=== PATIENT | female | born 1990 | race Caucasian/White ===

== ENCOUNTER 2017-06-29 17:21 | Emergency (ER) | payer OTHER ==
--- NOTE | 2017-06-29 17:33 | Emergency Department Record ---
History of Present Illness - General Chief Complaint: Headache Migraine Stated Complaint: MIGRAINE HEADACHE Time Seen by Provider: 06/29/17 17:30 Source: Patient Mode of Arrival: Ambulatory Limitations: No limitations - History of Present Illness Initial Comments: The patient is here due to a 3 week hx of a migraine HURTADO. She states the pain is over the L occipital area and the onset was gradual. She describes the pain as throbbing and is associated with photophobia, nausea, and vomiting. The patient has been taking her home medicines for it with no relief. She has had a LONG hx of these exact same HURTADO's and does see a headache Specialist at [facility]. She states she has had a full workup including and MRI and even has had Occipital nerve blocks in the recent past for the pain. There is no hx of fever, abdominal pain , diarrhea or CP. The patient does have some numbness to her L arm but that is typical for when she gets her migraine headaches. MD Complaint: Headache Onset/Timin -: Week(s) Onset Description: Gradual Location: Left, Occipital Quality: Pulsatile, Throbbing Consistency: Constant Associated Symptoms: Nausea, Photophobia, Sensitivity to sound, Vomiting Treatments Prior to Arrival: Ibuprofen, Migraine medication, Prescription analgesic - Related Data Home Medications Medication Instructions Recorded Confirmed Last Taken Butalb/Acetaminophen/Caffeine 1 each PO ASDIR 06/29/17 06/29/17 Unknown [Fioricet] Cyclobenzaprine HCl [Flexeril] 10 mg PO ASDIR 06/29/17 06/29/17 Unknown Hydrocodone/Acetaminophen [Athol 1 tab PO ASDIR 06/29/17 06/29/17 06/29/17 5mg/325mg] Allergies Allergy/AdvReac Type Severity Reaction Status Date / Time amoxicillin [Amoxicillin] Allergy VOMITING Verified 06/29/17 17:34 ketorolac [From Toradol] Allergy ITCHING Verified 06/29/17 17:34 Travel Screening - Travel/Exposure Within Last 30 Days Have you traveled within the last 30 days?: No - Travel/Exposure Within Last Year Have you traveled outside the [place] in the last year?: No - Additonal Travel Details Have you been exposed to anyone with a communicable illness?: No Review of Systems Constitutional: Denies: Chills, Fever, Malaise Eyes: Denies: Eye discharge ENT: Denies: Congestion Respiratory: Denies: Cough, Dyspnea Past Medical History - SOCIAL HISTORY Smoking Status: Never smoker Alcohol Use: Occasional Drug Use: None - RESPIRATORY Hx Respiratory Disorders: No - CARDIOVASCULAR Hx Cardio Disorders: Yes Hx Cardiac Cath: Yes Hx Chest Pain: Yes Hx Hypotension: Yes Hx Irregular Heartbeat: Yes Hx Palpitations: Yes Hx Pacemaker/Defib: Yes Comment:: Sick sinus syndrome - NEURO Hx Neuro Disorders: Yes Hx Headaches: Yes - GI Hx GI Disorders: No - Hx Genitourinary Disorders: Yes Hx Kidney Stones: Yes Hx UTI: Yes - ENDOCRINE Hx Endocrine Disorders: Yes Comment:: hypoglycemic - MUSCULOSKELETAL Hx Musculoskeletal Disorders: No - PSYCH Hx Psych Problems: No - HEMATOLOGY/ONCOLOGY Hx Hematology/Oncology Disorders: No Family Medical History Any Significant Family History?: No Physical Exam - General General Appearance: Alert, Oriented x3, Cooperative, No acute distress - Head Head exam: Atraumatic, Normocephalic, Normal inspection - Eye Eye exam: Normal appearance, PERRL - ENT Throat exam: Normal inspection. negative: Tonsillar erythema, Tonsillar exudate - Neck Neck exam: Normal inspection, Full ROM. negative: Meningismus (The neck is very supple.), Tenderness - Respiratory Respiratory exam: Normal lung sounds bilaterally. negative: Respiratory distress - Cardiovascular Cardiovascular Exam: Regular rate, Normal rhythm, Normal heart sounds - GI/Abdominal GI/Abdominal exam: Soft, Normal bowel sounds. negative: Tenderness - Extremities Extremities exam: Normal inspection, Full ROM, Normal capillary refill. negative: Tenderness - Neurological Neurological exam: Alert, Normal gait, Oriented X3, Other (Neg Drift and Rhomberg exams.). negative: Abnormal gait, Motor sensory deficit Course Vital Signs 06/29/17 17:22 Temperature 97.9 F Pulse Rate 113 H Respiratory 16 Rate Blood Pressure 122/72 Pulse Ox 97 - Reevaluation(s) Reevaluation #1: The patient is doing better. Her pain is resolving and she is up walking with no difficulty. 06/29/17 18:51 Reevaluation #2: The patient is doing better but is still having some pain. On exam her pain is still very reproducible. We will treat with a 2nd dose of pain medicines and discharge when improved. She is keeping fluids down with no nausea. 06/29/17 18:57 06/29/17 19:01 Reevaluation #3: The patient is now 50-60% improved. She would like a little more pain medicine and will be ready for home. 06/29/17 19:11 Medical Decision Making - Lab Data Result diagrams: 06/29/17 18:10 06/29/17 18:10 Disposition Disposition: Discharge Clinical Impression: Chronic head pain Disposition: Home, Self-Care Condition: (1) Good Instructions: Chronic Pain (ED) Additional Instructions: Please continue your regular medicines for home. Please see your Headache Specialist later this month as planned. Return to the ER for any worsening or new pain, fever, or vomiting. Forms: Patient Portal Access Time of Disposition: 19:01 Quality - Quality Measures Quality Measures: N/A - Blood Pressure Screening View Details: Yes Does Patient Have Any of the Following: No Blood Pressure Classification: Normal BP Reading Systolic Measurement: 109 Diastolic Measurement: 62 Screening for High Blood Pressure: < Normal BP, F/U Not Required > [G8783]
[2017-06-29] MEDS ORDERED: ONDANSETRON HCL IV 4 MG/2 ML VIAL IVP ONE (17:36)
[2017-06-29] MEDS ORDERED: DIPHENHYDRAMINE HCL IV 50 MG/ML VIAL IVP ONE (17:36)
[2017-06-29] MEDS ORDERED: 0.9 % SODIUM CHLORIDE 1,000 ML BAG IV ONE (17:36)
[2017-06-29] MEDS ORDERED: METOCLOPRAMIDE HCL 10 MG/2 ML VIAL IVP ONE (17:36)
[2017-06-29 18:28] LABS: BASO % 0.5 % (0-6); EOS % 8.2 % (0-6); HEMATOCRIT 41.2 % (35.0-47.0); HEMOGLOBIN 13.9 gm/dl (11.6-16.0); LYMPH % 36.9 % (16-45); MEAN CELL VOLUME 81.9 fl (81-97); MEAN CORPUSCULAR HEMOGLOBIN 27.6 pg (27-33); MEAN CORPUSCULAR HGB CONC 33.7 g/dl (32-36); MEAN PLATELET VOLUME 10.4 fl (7.4-10.4); MONO % 5.4 % (0-9); PLATELET COUNT 320 K/uL (130-400); RED BLOOD COUNT 5.03 M/uL (3.80-5.40); RED CELL DISTRIBUTION WIDTH 12.6 % (11.5-14.5); WHITE BLOOD COUNT W/O DIFF 8.4 K/uL (4.2-12.2)
[2017-06-29] MEDS ORDERED: HYDROMORPHONE HCL 1MG/ML **SYRINGE IVP ONE ×3 (18:31→19:11)
[2017-06-29 18:42] LABS: ALB/GLOB RATIO 1.5 (1.1-1.8); ALBUMIN 4.9 gm/dL (3.5-5.0); ALKALINE PHOSPHATASE 66 U/L (38-126); ALT/SGPT 37 U/L (9-52); ANION GAP 10.5 (7-16); AST/SGOT 19 U/L (14-36); BILIRUBIN,TOTAL 0.45 mg/dL (0.2-1.3); BLOOD UREA NITROGEN 8 mg/dL (7-17); CARBON DIOXIDE 27.5 mmol/L (22-30); CREATININE 0.6 mg/dL (0.52-1.04); EST GLOMERULAR FILTRATION RATE > 60 ml/min; GLUCOSE,RANDOM 87 mg/dL (70-110); TOTAL PROTEIN 8.2 gm/dL (6.3-8.2)
== END 2017-06-29 20:05 | disposition home or self-care (01) ==
LOC: ER 17:21
DX: G89.29 Other chronic pain (principal); R51 Headache; R11.2 Nausea with vomiting, unspecified; H53.149 Visual discomfort, unspecified
CPT/HCPCS: 99284 ×2; 96374; 96375; 85025; 80053; J2405; J1170; J1200; J2765; J7030

== ENCOUNTER 2017-10-17 03:09 | Emergency (ER) | payer OTHER ==
[2017-10-17] MEDS ORDERED: 0.9 % SODIUM CHLORIDE 1,000 ML BAG IV ONE (03:26)
[2017-10-17] MEDS ORDERED: ONDANSETRON HCL IV 4 MG/2 ML VIAL IVP ONE (03:33)
[2017-10-17 03:34] LABS: BASO % 0.6 % (0-6); EOS % 8.8 % (0-6); GRAN % 42.8 % (47-80); LYMPH % 40.7 % (16-45); MEAN CELL VOLUME 82.8 fl (81-97); MEAN CORPUSCULAR HEMOGLOBIN 26.8 pg (27-33); MEAN CORPUSCULAR HGB CONC 32.4 g/dl (32-36); MEAN PLATELET VOLUME 10.1 fl (7.4-10.4); MONO % 7.1 % (0-9); PLATELET COUNT 351 K/uL (130-400); RED BLOOD COUNT 4.47 M/uL (3.80-5.40); RED CELL DISTRIBUTION WIDTH 12.3 % (11.5-14.5); WHITE BLOOD COUNT W/O DIFF 9.7 K/uL (4.2-12.2)
[2017-10-17] MEDS ORDERED: MORPHINE SULFATE 5 MG/ML PFS IVP ONE ×4 (03:34→05:50)
[2017-10-17] MEDS ORDERED: ACETAMINOPHEN 1,000 MG/100 ML BTL IVPB ONE (03:34)
--- NOTE | 2017-10-17 03:41 | Emergency Department Record ---
History of Present Illness - General Chief Complaint: Abdominal Pain Stated Complaint: ABDOMINAL PAIN Time Seen by Provider: 10/17/17 03:25 Source: Patient, Family Mode of Arrival: Wheelchair Limitations: No limitations - History of Present Illness Initial Comments: 27 yo female presents with low abdominal pain and fever prior to arrival. The patient was approximately 13 weeks by dates when on 10/06 she had a suction D for a miscarriage. Her surgery was at [facility]. Her OB is Dr Gomes. Her surgeon was Dr Omalley. She had bleeding after procedure that seemed more than expected. She was treated with 4 doses of Cytotec. She had some improvement in her bleeding. In the last day her pain has increased. She additionally has experienced a fever of 100.7 just prior to arrival with some fever occurring as early as 1pm on Sunday. She did treat the fever with Tylenol. 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 She has had associated nausea and vomiting with the symptoms just prior to arrival. She is Rh negative and was given Rhogam per the op note. Hgb on 10/10 was 11.2. She denies any other current symptoms to explain the fever. MD Complaint: Abdominal pain Onset/Timin -: Days(s) Location: Suprapubic Radiation: Suprapubic Migration to: Suprapubic Severity: Moderate Consistency: Getting worse Improves With: Nothing Worsens With: Nothing Associated Symptoms: Anorexia, Vomiting - Related Data LMP (females 10-50): other Home Medications Medication Instructions Recorded Confirmed Last Taken Aspirin 81 mg PO DAILY 10/17/17 10/17/17 Unknown Allergies Allergy/AdvReac Type Severity Reaction Status Date / Time amoxicillin [Amoxicillin] Allergy VOMITING Verified 10/17/17 03:23 ketorolac [From Toradol] Allergy ITCHING Verified 10/17/17 03:23 Travel Screening - Travel/Exposure Within Last 30 Days Have you traveled within the last 30 days?: No - Travel/Exposure Within Last Year Have you traveled outside the [place] in the last year?: No - Additonal Travel Details Have you been exposed to anyone with a communicable illness?: No Review of Systems Constitutional: Reports: Chills, Fever Eyes: Denies: Eye discharge, Eye pain ENT: Denies: Congestion, Dental pain, Throat pain Respiratory: Denies: Cough, Dyspnea, Hemoptysis, Stridor, Wheezes Cardiovascular: Denies: Chest pain, Palpitations, Syncope Endocrine: Denies: Fatigue Gastrointestinal: Reports: Abdominal pain, Nausea, Vomiting Genitourinary: Reports: Abnormal menses Skin: Denies: Bruising, Change in color, Rash Neurological: Denies: Numbness, Weakness Psychiatric: Denies: Anxiety Hematological/Lymphatic: Denies: Blood Clots, Easy bleeding, Easy bruising, Swollen glands Past Medical History - SOCIAL HISTORY Smoking Status: Never smoker Alcohol Use: None Drug Use: None - RESPIRATORY Hx Respiratory Disorders: No - CARDIOVASCULAR Hx Cardio Disorders: Yes Hx Cardiac Cath: Yes Hx Chest Pain: Yes Hx Hypotension: Yes Hx Irregular Heartbeat: Yes Hx Palpitations: Yes Hx Pacemaker/Defib: Yes Comment:: Sick sinus syndrome - NEURO Hx Neuro Disorders: Yes Hx Headaches: Yes (migraines 2/month) - GI Hx GI Disorders: No - Hx Genitourinary Disorders: Yes Hx Kidney Stones: Yes Hx UTI: Yes - ENDOCRINE Hx Endocrine Disorders: Yes Comment:: hypoglycemic - MUSCULOSKELETAL Hx Musculoskeletal Disorders: No - PSYCH Hx Psych Problems: No - HEMATOLOGY/ONCOLOGY Hx Hematology/Oncology Disorders: No Family Medical History Any Significant Family History?: No Physical Exam - General General Appearance: Alert, Oriented x3, Cooperative, No acute distress Limitations: No limitations - Head Head exam: Normal inspection - Eye Eye exam: Normal appearance. negative: Conjunctival injection - ENT ENT exam: Normal exam, Mucous membranes moist Ear exam: Normal external inspection Nasal Exam: Normal inspection Mouth exam: Normal external inspection - Neck Neck exam: Normal inspection, Full ROM. negative: Tenderness - Respiratory Respiratory exam: Normal lung sounds bilaterally. negative: Respiratory distress - Cardiovascular Cardiovascular Exam: Regular rate, Normal rhythm, Normal heart sounds - GI/Abdominal GI/Abdominal exam: Soft, Tenderness. negative: Distended, Guarding, Rebound, Rigid - Rectal Rectal exam: Deferred - exam: Deferred - Extremities Extremities exam: Normal inspection - Back Back exam: Reports: Normal inspection. Denies: CVA tenderness (R), CVA tenderness (L) - Neurological Neurological exam: Alert, Oriented X3 - Psychiatric Psychiatric exam: Normal affect, Normal mood - Skin Skin exam: Dry, Intact, Normal color, Warm Course Vital Signs 10/17/17 03:13 Temperature 98.3 F Pulse Rate 90 Respiratory 20 Rate Blood Pressure 91/64 Pulse Ox 98 - Reevaluation(s) Reevaluation #1: The patient reports 10 pain 10/17/17 03:44 The CBC was reviewed The Hgb 12.0 is and the WBC is 9.7 10/17/17 03:48 [facility] Op report and labs were reviewed 10/17/17 04:02 The CMP and UA were reviewed No acute changes. No sign of infection. I explained that I recommend and US and likely OB consultation for pain, fever, vomiting and chills. These services are not available at [facility] 10/17/17 04:04 I called [facility] to arrange ED to ED transfer. 10/17/17 04:[address] Rodriguez of [facility] ED He accepts the patient for transfer Medical Decision Making - Lab Data Result diagrams: 10/17/17 03:20 10/17/17 03:20 Disposition Disposition: Transfer Clinical Impression: Vaginal bleeding Abdominal pain Qualifiers: Abdominal location: unspecified location Qualified Code(s): R10.9 - Unspecified abdominal pain Disposition: Acute Care Hospital Transfer Transfer To: [facility] Reason For Transfer: Vaginal bleeding with fever after surgery Accepting Physician: Jennifer Time Discussed w/Accepting Physician: 04:04 Condition: (2) Stable Forms: Patient Portal Access Time of Disposition: 04:04 Quality - Quality Measures Quality Measures: N/A - Blood Pressure Screening Does Patient Have Any of the Following: No Blood Pressure Classification: Normal BP Reading Systolic Measurement: 91 Diastolic Measurement: 64 Screening for High Blood Pressure: < Normal BP, F/U Not Required > [G8783]
[2017-10-17 03:52] LABS: BILIRUBIN,TOTAL < 0.20 mg/dL (0.2-1.0); BLOOD UREA NITROGEN 8 mg/dL (6-20); CREATININE 0.5 mg/dL (0.5-0.9); EST GLOMERULAR FILTRATION RATE > 60 mL/min
[2017-10-17 03:53] LABS: TOTAL PROTEIN 7.7 g/dL (6.6-8.7)
[2017-10-17 03:54] LABS: URINE APPEARANCE CLEAR; URINE BILIRUBIN NEGATIVE (NEGATIVE); URINE BLOOD MODERATE (NEGATIVE); URINE COLOR YELLOW; URINE GLUCOSE (UA) NEGATIVE (NEGATIVE); URINE KETONE NEGATIVE (NEGATIVE); URINE LEUKOCYTE ESTERASE NEGATIVE (NEGATIVE); URINE NITRITE NEGATIVE (NEGATIVE); URINE PROTEIN NEGATIVE (NEGATIVE); URINE UROBILINOGEN 0.2 E.U./dL (0.20 - 1.00)
[2017-10-17 03:55] LABS: GLUCOSE,RANDOM 98 mg/dL (74-109)
[2017-10-17 03:57] LABS: ALT/SGPT 16 U/L (<33); AST/SGOT 32 U/L (10.0-35.0)
[2017-10-17 03:58] LABS: ALB/GLOB RATIO 1.2 (1.1-1.8); ALBUMIN 4.2 g/dL (4.0-5.0); ALKALINE PHOSPHATASE 62 U/L (35-104)
[2017-10-17 04:02] LABS: URINE BACTERIA NONE SEEN; URINE EPITHELIAL CELLS 0 - 2 (FEW); URINE WBC 0 - 2 (0-2/hpf)
[2017-10-17] MEDS ORDERED: KETOROLAC 30 MG/ML VIAL IVP ONE (04:12)
== END 2017-10-17 06:11 | disposition short-term general hospital (02) ==
LOC: ER 03:09
DX: O03.1 Delayed or excessive hemorrhage following incomplete spontaneous abortion (principal); R10.9 Unspecified abdominal pain; R50.81 Fever presenting with conditions classified elsewhere; R11.11 Vomiting without nausea
CPT/HCPCS: 99285 ×2; 96376; 96374; 96375; 96361; 85025; 80053; 81001; J2405; J2270; J7030

== ENCOUNTER 2017-11-17 13:14 | Emergency (ER) | payer OTHER ==
--- NOTE | 2017-11-17 13:25 | Emergency Department Record ---
History of Present Illness - General Chief Complaint: Chest Pain Stated Complaint: CHEST PAIN,SYNCOPY,NAUSEA,VOMITING Time Seen by Provider: 11/17/17 13:24 Source: Patient Mode of Arrival: Ambulatory - History of Present Illness Initial Comments: vomiting times 5 yesterday and three times through the night and dry heaves and diarrhea yesterday times 4 and three times today. lightheaded today and felt hot and dizzy and syncope times 5 ( three last night and two today). Dr. Del Valle is primary Dr. [facility] patient had a spontanious about 6 weeks ago and a D and C for retained products at [facility] 4 weeks ago and her last hcg level was 18 - Related Data Previous Rx's Medication Instructions Recorded Promethazine HCl [Phenergan] 25 mg PO Q6HR #10 tablet 11/17/17 Sucralfate [Carafate] 1 g PO QID #300 udc 11/17/17 Allergies Allergy/AdvReac Type Severity Reaction Status Date / Time amoxicillin [Amoxicillin] Allergy VOMITING Verified 11/17/17 13:32 ketorolac [From Toradol] Allergy ITCHING Verified 11/17/17 13:32 Review of Systems Reviewed: No additional complaints except as noted below Constitutional: Reports: As per HPI. Denies: Chills, Fever, Malaise, Night sweats, Weakness, Weight change Eyes: Reports: As per HPI. Denies: Eye discharge, Eye pain, Photophobia, Vision change ENT: Reports: As per HPI. Denies: Congestion, Dental pain, Ear pain, Epistaxis , Hearing loss, Throat pain Respiratory: Reports: As per HPI. Denies: Cough, Dyspnea, Hemoptysis, Stridor, Wheezes Cardiovascular: Reports: As per HPI, Chest pain. Denies: Arrhythmia, Dyspnea on exertion, Edema, Murmurs, Orthopnea, Palpitations, Paroxysmal nocturnal dyspnea, Rheumatic Fever, Syncope Endocrine: Reports: As per HPI. Denies: Fatigue, Heat or cold intolerance, Polydipsia, Polyuria Gastrointestinal: Reports: As per HPI, Abdominal pain, Diarrhea, Vomiting. Denies: Constipation, Hematemesis, Hematochezia, Melena, Nausea Genitourinary: Reports: As per HPI. Denies: Abnormal menses, Discharge, Dyspareunia, Dysuria, Frequency, Hematuria, Incontinence, Retention, Urgency Musculoskeletal: Reports: As per HPI. Denies: Arthralgia, Back pain, Gout, Joint swelling, Myalgia, Neck pain Skin: Reports: As per HPI. Denies: Bruising, Change in color, Change in hair/ nails, Lesions, Pruritus, Rash Neurological: Reports: As per HPI. Denies: Abnormal gait, Confusion, Headache, Numbness, Paresthesias, Seizure, Tingling, Tremors, Vertigo, Weakness Psychiatric: Reports: As per HPI. Denies: Anxiety, Auditory hallucinations, Depression, Homicidal thoughts, Suicidal thoughts, Visual hallucinations Hematological/Lymphatic: Reports: As per HPI. Denies: Anemia, Blood Clots, Easy bleeding, Easy bruising, Swollen glands Past Medical History - SOCIAL HISTORY Smoking Status: Never smoker Drug Use: None - RESPIRATORY Hx Respiratory Disorders: No - CARDIOVASCULAR Hx Cardio Disorders: Yes Hx Cardiac Cath: Yes Hx Chest Pain: Yes Hx Hypotension: Yes Hx Irregular Heartbeat: Yes Hx Palpitations: Yes Hx Pacemaker/Defib: Yes Comment:: Sick sinus syndrome - NEURO Hx Neuro Disorders: Yes Hx Headaches: Yes (migraines 2/month) - GI Hx GI Disorders: No - Hx Genitourinary Disorders: Yes Hx Kidney Stones: Yes Hx UTI: Yes - ENDOCRINE Hx Endocrine Disorders: Yes Comment:: hypoglycemic - MUSCULOSKELETAL Hx Musculoskeletal Disorders: No - PSYCH Hx Psych Problems: No - HEMATOLOGY/ONCOLOGY Hx Hematology/Oncology Disorders: No Physical Exam - General General Appearance: Alert, Oriented x3, Cooperative, No acute distress - Head Head exam: Normal inspection - Eye Eye exam: Normal appearance, PERRL Pupils: Normal accommodation - ENT ENT exam: Normal exam, Mucous membranes moist, Normal external ear exam, Normal orophraynx, TM's normal bilaterally Ear exam: Normal external inspection. negative: External canal tenderness Nasal Exam: Normal inspection. negative: Discharge, Sinus tenderness Mouth exam: Normal external inspection, Tongue normal Teeth exam: Normal inspection. negative: Dental caries Throat exam: Normal inspection. negative: Tonsillar erythema, Tonsillar exudate - Neck Neck exam: Normal inspection, Full ROM. negative: Tenderness - Respiratory Respiratory exam: Normal lung sounds bilaterally. negative: Respiratory distress - Cardiovascular Cardiovascular Exam: Regular rate, Normal rhythm, Normal heart sounds - GI/Abdominal GI/Abdominal exam: Soft, Normal bowel sounds. negative: Tenderness - Rectal Rectal exam: Deferred - exam: Deferred - Extremities Extremities exam: Normal inspection, Full ROM, Normal capillary refill. negative: Tenderness - Back Back exam: Reports: Normal inspection, Full ROM. Denies: Muscle spasm, Rash noted, Tenderness - Neurological Neurological exam: Alert, Normal gait, Oriented X3, Reflexes normal - Psychiatric Psychiatric exam: Normal affect, Normal mood - Skin Skin exam: Dry, Intact, Normal color, Warm Course pacemaker working nicely and when she say up she said she felt like she was going to pass out. - Reevaluation(s) Reevaluation #1: patient vomited the Gi cocktail and gave IV protonix 11/17/17 15:34 Reevaluation #2: dilaudid 1 mg IV for esophageal pain 11/17/17 15:35 Reevaluation #3: feeling better 11/17/17 17:07 Medical Decision Making - Lab Data Result diagrams: 11/17/17 13:30 11/17/17 13:30 Disposition Clinical Impression: Gastroenteritis, Viral syndrome Vomiting Qualifiers: Vomiting type: unspecified Vomiting Intractability: non-intractable Nausea presence: with nausea Qualified Code(s): R11.2 - Nausea with vomiting, unspecified Disposition: Home, Self-Care Condition: (1) Good Instructions: Gastroenteritis (ED) Additional Instructions: follow up with primary DrAlfonso in 5 days Prescriptions: Promethazine HCl [Phenergan] 25 mg PO Q6HR #10 tablet Sucralfate [Carafate] 1 g PO QID #300 udc Forms: Patient Portal Access Time of Disposition: 17:09 Quality - Quality Measures Quality Measures: N/A - Blood Pressure Screening Does Patient Have Any of the Following: No Blood Pressure Classification: Pre-Hypertensive BP Reading Systolic Measurement: 125 Diastolic Measurement: 76 Screening for High Blood Pressure: < Pre-Hypertensive BP, F/U Documented > [ G8950] Pre-Hypertensive Follow-up Interventions: Referral to alternative/primary care provider.
[2017-11-17 13:50] LABS: BASO % 0.2 % (0-6); EOS % 1.8 % (0-6); GRAN % 79.2 % (47-80); HEMATOCRIT 38.9 % (35.0-47.0); HEMOGLOBIN 12.7 gm/dl (11.6-16.0); MEAN CELL VOLUME 82.9 fl (81-97); MEAN CORPUSCULAR HEMOGLOBIN 27.1 pg (27-33); MEAN CORPUSCULAR HGB CONC 32.6 g/dl (32-36); MEAN PLATELET VOLUME 10.2 fl (7.4-10.4); MONO % 3.8 % (0-9); PLATELET COUNT 391 K/uL (130-400); RED BLOOD COUNT 4.69 M/uL (3.80-5.40); RED CELL DISTRIBUTION WIDTH 13.6 % (11.5-14.5); WHITE BLOOD COUNT W/O DIFF 15.2 K/uL (4.2-12.2)
[2017-11-17] MEDS ORDERED: MAGNESIUM HYDROXIDE/AL HYDROX 30 ML, LIDOCAINE VISC 2% 200 MG PO ONE ×2 (13:51)
[2017-11-17] MEDS ORDERED: PANTOPRAZOLE SODIUM 40 MG TABLET PO ONE (13:51)
[2017-11-17] MEDS ORDERED: 0.9 % SODIUM CHLORIDE 1000ML 1,000 ML IV SCH ×2 (14:00→14:30)
[2017-11-17 14:04] LABS: EST GLOMERULAR FILTRATION RATE > 60 mL/min
[2017-11-17] MEDS ORDERED: PANTOPRAZOLE SODIUM IV 40 MG VIAL IVP ONE (14:04)
[2017-11-17] MEDS ORDERED: ONDANSETRON HCL IV 4 MG/2 ML VIAL IVP ONE ×2 (14:04→16:33)
[2017-11-17 14:34] LABS: INFLUENZA A NEGATIVE (NEGATIVE); INFLUENZA B NEGATIVE (NEGATIVE)
[2017-11-17] MEDS ORDERED: KETOROLAC 30 MG/ML VIAL IVP ONE (15:15)
[2017-11-17] MEDS ORDERED: HYDROMORPHONE HCL 1 MG/ML SYRINGE IVP ONE (15:30)
[2017-11-17 15:35] LABS: BLOOD UREA NITROGEN 12 mg/dL (6-20); CREATININE 0.6 mg/dL (0.5-0.9)
[2017-11-17 15:38] LABS: GLUCOSE,RANDOM 103 mg/dL (74-109)
[2017-11-17 15:45] LABS: CKMB < 1.0 ng/mL (<3.77)
[2017-11-17] MEDS ORDERED: PROMETHAZINE HCL 25 MG in 0.9 % SODIUM CHLORIDE 100ML 100 ML IVPB ONE (16:38)
--- NOTE | 2017-11-17 17:17 | Emergency Department Record ---
History of Present Illness - General Chief Complaint: Chest Pain Stated Complaint: CHEST PAIN,SYNCOPY,NAUSEA,VOMITING Time Seen by Provider: 11/17/17 13:24 Source: Patient Mode of Arrival: Ambulatory - History of Present Illness Onset/Timin -: Days(s) Pain Location: Substernal, Left chest Anginal Symptoms: Nausea, Vomiting, Other Treatment Prior to Arrival Comment:: tyleonol ibuprofen - Related Data Previous Rx's Medication Instructions Recorded Hydrocodone/Acetaminophen [[place] 1 each PO Q6HR #14 tablet 11/17/17 5-325 Tablet] Promethazine HCl [Phenergan] 25 mg PO Q6HR #10 tablet 11/17/17 Sucralfate [Carafate] 1 g PO QID #300 udc 11/17/17 Allergies Allergy/AdvReac Type Severity Reaction Status Date / Time amoxicillin [Amoxicillin] Allergy VOMITING Verified 11/17/17 13:32 ketorolac [From Toradol] Allergy ITCHING Verified 11/17/17 13:32 Travel Screening - Travel/Exposure Within Last 30 Days Have you traveled within the last 30 days?: No - Travel/Exposure Within Last Year Have you traveled outside the [place] in the last year?: No - Additonal Travel Details Have you been exposed to anyone with a communicable illness?: Yes Exposure Details:: [facility] eye care - Travel Symptoms Symptom Screening: Fever (GT 100.4), Vomiting Review of Systems Constitutional: Reports: As per HPI. Denies: Chills, Fever, Malaise, Night sweats, Weakness, Weight change Eyes: Reports: As per HPI. Denies: Eye discharge, Eye pain, Photophobia, Vision change ENT: Reports: As per HPI. Denies: Congestion, Dental pain, Ear pain, Epistaxis , Hearing loss, Throat pain Respiratory: Reports: As per HPI. Denies: Cough, Dyspnea, Hemoptysis, Stridor, Wheezes Cardiovascular: Reports: As per HPI, Chest pain. Denies: Arrhythmia, Dyspnea on exertion, Edema, Murmurs, Orthopnea, Palpitations, Paroxysmal nocturnal dyspnea, Rheumatic Fever, Syncope Endocrine: Reports: As per HPI. Denies: Fatigue, Heat or cold intolerance, Polydipsia, Polyuria Gastrointestinal: Reports: As per HPI, Abdominal pain, Diarrhea, Vomiting. Denies: Constipation, Hematemesis, Hematochezia, Melena, Nausea Genitourinary: Reports: As per HPI. Denies: Abnormal menses, Discharge, Dyspareunia, Dysuria, Frequency, Hematuria, Incontinence, Retention, Urgency Musculoskeletal: Reports: As per HPI. Denies: Arthralgia, Back pain, Gout, Joint swelling, Myalgia, Neck pain Skin: Reports: As per HPI. Denies: Bruising, Change in color, Change in hair/ nails, Lesions, Pruritus, Rash Neurological: Reports: As per HPI. Denies: Abnormal gait, Confusion, Headache, Numbness, Paresthesias, Seizure, Tingling, Tremors, Vertigo, Weakness Psychiatric: Reports: As per HPI. Denies: Anxiety, Auditory hallucinations, Depression, Homicidal thoughts, Suicidal thoughts, Visual hallucinations Hematological/Lymphatic: Reports: As per HPI. Denies: Anemia, Blood Clots, Easy bleeding, Easy bruising, Swollen glands Past Medical History - SOCIAL HISTORY Smoking Status: Never smoker Drug Use: None - RESPIRATORY Hx Respiratory Disorders: No - CARDIOVASCULAR Hx Cardio Disorders: Yes Hx Cardiac Cath: Yes Hx Chest Pain: Yes Hx Hypotension: Yes Hx Irregular Heartbeat: Yes Hx Palpitations: Yes Hx Pacemaker/Defib: Yes Comment:: Sick sinus syndrome - NEURO Hx Neuro Disorders: Yes Hx Headaches: Yes (migraines 2/month) - GI Hx GI Disorders: No - Hx Genitourinary Disorders: Yes Hx Kidney Stones: Yes Hx UTI: Yes - ENDOCRINE Hx Endocrine Disorders: Yes Comment:: hypoglycemic - MUSCULOSKELETAL Hx Musculoskeletal Disorders: No - PSYCH Hx Psych Problems: No - HEMATOLOGY/ONCOLOGY Hx Hematology/Oncology Disorders: No Family Medical History Any Significant Family History?: No Course Vital Signs 11/17/17 11/17/17 11/17/17 13:16 15:01 15:30 Temperature 98.6 F Pulse Rate 91 H Pulse Rate [ 88 85 Pulse Ox Probe] Respiratory 20 20 16 Rate Blood Pressure 125/76 Blood Pressure 127/80 115/83 [Right Arm] Pulse Ox 97 99 98 11/17/17 11/17/17 16:00 16:30 Temperature Pulse Rate Pulse Rate [ 82 85 Pulse Ox Probe] Respiratory 20 Rate Blood Pressure Blood Pressure 119/81 120/81 [Right Arm] Pulse Ox Medical Decision Making - Lab Data Result diagrams: 11/17/17 13:30 11/17/17 13:30 Lab Results 11/17/17 11/17/17 11/17/17 Range/Units 13:30 13:30 13:30 WBC 15.2 H (4.2-12.2) K/uL RBC 4.69 (3.80-5.40) M/uL Hgb 12.7 (11.6-16.0) gm/dl Hct 38.9 (35.0-47.0) % MCV 82.9 (81-97) fl MCH 27.1 (27-33) pg MCHC 32.6 (32-36) g/dl RDW 13.6 (11.5-14.5) % Plt Count 391 (130-400) K/uL MPV 10.2 (7.4-10.4) fl Gran % 79.2 (47-80) % Lymphocytes % 15.0 L (16-45) % Monocytes % 3.8 (0-9) % Eosinophils % 1.8 (0-6) % Basophils % 0.2 (0-6) % Sodium 144 (136-145) mmol/L Potassium 3.9 (3.4-4.5) mmol/L Chloride 102 (98-107) mmol/L Carbon Dioxide 22.0 (22-29) mmol/L Anion Gap 20.0 H (7-16) BUN 12 (6-20) mg/dL Creatinine 0.6 (0.5-0.9) mg/dL Estimated GFR > 60 mL/min Random Glucose 103 (74-109) mg/dL Calcium 9.5 (8.6-10.0) mg/dL CK-MB (CK-2) < 1.0 (<3.77) ng/mL Troponin T < 0.010 (0-0.010) ng/mL Total Beta HCG 11.52 mIU/mL Influenza Type A Ag (NEGATIVE) Influenza Type B Ag (NEGATIVE) 11/17/17 Range/Units 14:15 WBC (4.2-12.2) K/uL RBC (3.80-5.40) M/uL Hgb (11.6-16.0) gm/dl Hct (35.0-47.0) % MCV (81-97) fl MCH (27-33) pg MCHC (32-36) g/dl RDW (11.5-14.5) % Plt Count (130-400) K/uL MPV (7.4-10.4) fl Gran % (47-80) % Lymphocytes % (16-45) % Monocytes % (0-9) % Eosinophils % (0-6) % Basophils % (0-6) % Sodium (136-145) mmol/L Potassium (3.4-4.5) mmol/L Chloride (98-107) mmol/L Carbon Dioxide (22-29) mmol/L Anion Gap (7-16) BUN (6-20) mg/dL Creatinine (0.5-0.9) mg/dL Estimated GFR mL/min Random Glucose (74-109) mg/dL Calcium (8.6-10.0) mg/dL CK-MB (CK-2) (<3.77) ng/mL Troponin T (0-0.010) ng/mL Total Beta HCG mIU/mL Influenza Type A Ag Negative (NEGATIVE) Influenza Type B Ag Negative (NEGATIVE) Disposition Clinical Impression: Gastroenteritis, Viral syndrome Vomiting Qualifiers: Vomiting type: unspecified Vomiting Intractability: non-intractable Nausea presence: with nausea Qualified Code(s): R11.2 - Nausea with vomiting, unspecified Disposition: Home, Self-Care Condition: (1) Good Instructions: Gastroenteritis (ED) Additional Instructions: follow up with primary DrAlfonso in 5 days Prescriptions: Hydrocodone/Acetaminophen [Kenvir 5-325 Tablet] 1 each PO Q6HR #14 tablet Promethazine HCl [Phenergan] 25 mg PO Q6HR #10 tablet Sucralfate [Carafate] 1 g PO QID #300 udc Forms: Patient Portal Access Time of Disposition: 17:16 Quality - Quality Measures Quality Measures: N/A - Blood Pressure Screening Does Patient Have Any of the Following: No Blood Pressure Classification: Pre-Hypertensive BP Reading Systolic Measurement: 125 Diastolic Measurement: 76 Screening for High Blood Pressure: < Pre-Hypertensive BP, F/U Documented > [ G8950] Pre-Hypertensive Follow-up Interventions: Referral to alternative/primary care provider.
== END 2017-11-17 17:26 | disposition home or self-care (01) ==
LOC: ER 13:14
DX: A08.4 Viral intestinal infection, unspecified (principal); R55 Syncope and collapse; R07.2 Precordial pain; R11.2 Nausea with vomiting, unspecified; I49.5 Sick sinus syndrome; Z95.0 Presence of cardiac pacemaker
CPT/HCPCS: 99284 ×2; 96374; 96375; 96361; 85025; 84702; 82553; 80048; 87400; 84484; 93005; 93010; J2405; J1170; C9113; J2550; J7030

== ENCOUNTER 2017-11-19 11:38 | Emergency (ER) | payer OTHER ==
--- NOTE | 2017-11-19 12:04 | Emergency Department Record ---
History of Present Illness - General Chief complaint: Vomiting Stated complaint: VOMITING Time Seen by Provider: 11/19/17 11:51 Source: Patient Mode of Arrival: Ambulatory Limitations: No limitations - History of Present Illness Initial comments: The patient is here due to multiple complaints. She has been ill for 3 days with nausea, vomiting, and diarrhea. Now she has been coughing and has had a runny nose, ST, HURTADO, and body aches for the last 18 hours. Her fiancee was just diagnosed with Flu A 2 days ago. She denies any neck pain, or AP but has had sharp stabbing CP intermittently for days which has been a chronic problem for her. The patient has a hx of sick sinus syndrome and does have a pacemaker. Additionally she has been lightheaded at times for days. She was in the ER 2 days ago for the same issues and did have 2 liters of IVF. The patient has a long hx of chronic migraine HURTADO's and states this pain is very similar to that pain which she experiences quite frequently. MD complaint: Diarrhea, Nausea, Vomiting Onset/Timin -: Days(s) Severity: Moderate Severity scale (1-10): 7 Quality: Aching Consistency: Constant Associated Symptoms: Cough, Headaches, Nausea/vomiting - Related Data Previous Rx's Medication Instructions Recorded Hydrocodone/Acetaminophen [[place] 1 each PO Q6HR #14 tablet 11/17/17 5-325 Tablet] Promethazine HCl [Phenergan] 25 mg PO Q6HR #10 tablet 11/17/17 Sucralfate [Carafate] 1 g PO QID #300 udc 11/17/17 Oseltamivir Phosphate [Tamiflu] 75 mg PO BID #9 capsule 11/19/17 Allergies Allergy/AdvReac Type Severity Reaction Status Date / Time amoxicillin [Amoxicillin] Allergy VOMITING Verified 11/19/17 11:51 ketorolac [From Toradol] Allergy ITCHING Verified 11/19/17 11:51 Travel Screening - Travel/Exposure Within Last 30 Days Have you traveled within the last 30 days?: No - Travel/Exposure Within Last Year Have you traveled outside the [place] in the last year?: No - Additonal Travel Details Have you been exposed to anyone with a communicable illness?: No - Travel Symptoms Symptom Screening: None Review of Systems Constitutional: Reports: Chills, Fever, Malaise Eyes: Denies: Eye discharge ENT: Reports: Congestion Respiratory: Reports: Cough. Denies: Dyspnea Cardiovascular: Reports: Chest pain (chronic.). Denies: Arrhythmia Endocrine: Reports: Fatigue Past Medical History - SOCIAL HISTORY Smoking Status: Never smoker Alcohol Use: None Drug Use: None - RESPIRATORY Hx Respiratory Disorders: No - CARDIOVASCULAR Hx Cardio Disorders: Yes Hx Cardiac Cath: Yes Hx Chest Pain: Yes Hx Hypotension: Yes Hx Irregular Heartbeat: Yes Hx Palpitations: Yes Hx Pacemaker/Defib: Yes Comment:: Sick sinus syndrome - NEURO Hx Neuro Disorders: Yes Hx Headaches: Yes (migraines 2/month) - GI Hx GI Disorders: No - Hx Genitourinary Disorders: Yes Hx Kidney Stones: Yes Hx UTI: Yes - ENDOCRINE Hx Endocrine Disorders: Yes Comment:: hypoglycemic - MUSCULOSKELETAL Hx Musculoskeletal Disorders: No - PSYCH Hx Psych Problems: No - HEMATOLOGY/ONCOLOGY Hx Hematology/Oncology Disorders: No Family Medical History Any Significant Family History?: Yes Physical Exam - General General Appearance: Alert, Oriented x3, Cooperative, No acute distress - Head Head exam: Atraumatic, Normocephalic, Normal inspection - Eye Eye exam: Normal appearance, PERRL, EOMI - ENT Throat exam: Tonsillar erythema. negative: Normal inspection, Tonsillomegaly, Tonsillar exudate - Neck Neck exam: Normal inspection, Full ROM. negative: Lymphadenopathy, Meningismus (The neck is very supple. There is a neg Kernig's and Brudsinski's reflexes.), Tenderness - Respiratory Respiratory exam: Normal lung sounds bilaterally. negative: Respiratory distress - Cardiovascular Cardiovascular Exam: Regular rate, Normal rhythm, Normal heart sounds - GI/Abdominal GI/Abdominal exam: Soft, Normal bowel sounds. negative: Tenderness - Extremities Extremities exam: Normal inspection, Full ROM, Normal capillary refill. negative: Tenderness - Neurological Neurological exam: Alert, Normal gait, Oriented X3. negative: Abnormal gait, Motor sensory deficit Course Vital Signs 11/19/17 11:44 Temperature 98.2 F Pulse Rate 95 H Respiratory 18 Rate Blood Pressure 123/84 Pulse Ox 97 - Reevaluation(s) Reevaluation #1: The patient is doing better but is still experiencing chest pains intermittently. She also is concerned as to why she seems to be passing out. I explained to her that our evaluation here at [facility] does not demonstrate any reason for the pain or syncope so I do believe the best course of action is to admit her to her Cardiology service for further monitoring and evaluation. The patient is refusing that plan. I explained to her that due to the possibility of a cardiac issue and the risks of NOT being admitted I have to insist that the patient leave the hospital AMA. The patient understands the risks of refusing and accepts the risks. She is in contact with her [facility] and will schedule an appointment soon. 11/19/17 14:01 Reevaluation #2: The patient is doing better at this time. Her Orthostatic vital signs were neg and she denies any states her pain is improved. She is ready for home. 11/19/17 14:34 Medical Decision Making - Data Complexity MDM Data: Labs Ordered and/or Reviewed, X-Ray Ordered and/or Reviewed, EKG Ordered and/or Reviewed - Lab Data Result diagrams: 11/19/17 11:20 11/19/17 11:20 - EKG Data -: EKG Interpreted by Me EKG: No Acute Changes, Unchanged From Previous - Radiology Data Radiology results: Report reviewed (CXR: Neg) Disposition Disposition: Discharge Clinical Impression: Viral syndrome Disposition: Against Medical Advice Condition: (2) Stable Instructions: Acute Nausea and Vomiting (ED) Additional Instructions: Please continue your home medicines and continue the Tamiflu. Please see your PCP later this week for recheck and also see your [facility]. Return to the ER for any worsening symptoms. Prescriptions: Oseltamivir Phosphate [Tamiflu] 75 mg PO BID #9 capsule Forms: Patient Portal Access Time of Disposition: 14:18 Quality - Quality Measures Quality Measures: N/A - Blood Pressure Screening View Details: Yes Does Patient Have Any of the Following: No Blood Pressure Classification: Pre-Hypertensive BP Reading Systolic Measurement: 123 Diastolic Measurement: 84 Screening for High Blood Pressure: < Pre-Hypertensive BP, F/U Documented > [ G8950] Pre-Hypertensive Follow-up Interventions: Referral to alternative/primary care provider.
[2017-11-19] MEDS ORDERED: PROMETHAZINE HCL 12.5 MG in 0.9 % SODIUM CHLORIDE 100ML 100 ML IVPB ONE (12:05)
[2017-11-19] MEDS ORDERED: ACETAMINOPHEN 1,000 MG/100 ML BTL IVPB ONE (12:05)
[2017-11-19] MEDS ORDERED: 0.9 % SODIUM CHLORIDE 1,000 ML BAG IV ONE ×2 (12:05→13:56)
[2017-11-19 12:38] LABS: BASO % 0.3 % (0-6); EOS % 3.9 % (0-6); GRAN % 74.3 % (47-80); HEMOGLOBIN 13.1 gm/dl (11.6-16.0); LYMPH % 17.3 % (16-45); MEAN CELL VOLUME 82.8 fl (81-97); MEAN CORPUSCULAR HEMOGLOBIN 27.1 pg (27-33); MEAN CORPUSCULAR HGB CONC 32.8 g/dl (32-36); MEAN PLATELET VOLUME 10.2 fl (7.4-10.4); MONO % 4.2 % (0-9); PLATELET COUNT 357 K/uL (130-400); RED BLOOD COUNT 4.83 M/uL (3.80-5.40); RED CELL DISTRIBUTION WIDTH 13.5 % (11.5-14.5); WHITE BLOOD COUNT W/O DIFF 11.2 K/uL (4.2-12.2)
[2017-11-19 12:47] LABS: BLOOD UREA NITROGEN 9 mg/dL (6-20); CREATININE 0.6 mg/dL (0.5-0.9); EST GLOMERULAR FILTRATION RATE > 60 mL/min
[2017-11-19 12:48] LABS: INR 1.05; PARTIAL THROMBOPLASTIN TIME 24.8 SECONDS (24.5-39.1); PROTHROMBIN TIME (PATIENT) 11.4 SECONDS (9.5-12.1)
[2017-11-19 12:50] LABS: GLUCOSE,RANDOM 83 mg/dL (74-109)
[2017-11-19] MEDS ORDERED: OSTELTAMIVIR 75 MG CAP PO ONE (12:51)
[2017-11-19 12:53] LABS: CREATINE PHOSPHOKINASE 37 U/L (26-192)
[2017-11-19 12:54] LABS: CKMB < 1.0 ng/mL (<3.77)
[2017-11-19 13:52] LABS: URINE APPEARANCE CLEAR; URINE BILIRUBIN NEGATIVE (NEGATIVE); URINE BLOOD NEGATIVE (NEGATIVE); URINE COLOR YELLOW; URINE GLUCOSE (UA) NEGATIVE (NEGATIVE); URINE KETONE 15 mg/dL (NEGATIVE); URINE LEUKOCYTE ESTERASE NEGATIVE (NEGATIVE); URINE NITRITE NEGATIVE (NEGATIVE); URINE PROTEIN NEGATIVE (NEGATIVE); URINE UROBILINOGEN 0.2 E.U./dL (0.20 - 1.00)
[2017-11-19] MEDS ORDERED: HYDROMORPHONE HCL 1 MG/ML SYRINGE IVP ONE (14:00)
--- NOTE | 2017-11-20 07:58 | RADIOLOGY REPORT ---
EXAM: CHEST, TWO VIEWS HISTORY: INFLUENZA SYMPTOMS FOR THREE DAYS. TECHNIQUE: Upright PA and lateral views of the chest were obtained. Comparison: Two view chest radiographic examination dated 10/31/17. FINDINGS: A dual lead transvenous cardiac stimulator is in place via the left subclavian approach with lead tips in the right atrium and right ventricle respectively. The heart is not enlarged and the pulmonary vasculature is nondilated. The lungs and pleural spaces are clear. Mild degenerative end plate changes are scattered throughout the visualized spine. IMPRESSION: DUAL LEAD TRANSVENOUS CARDIAC STIMULATOR REMAINS IN PLACE VIA THE LEFT SUBCLAVIAN APPROACH UNCHANGED. NO EVIDENCE OF AN ACUTE INTRATHORACIC PROCESS. JOB NUMBER: [id number] [facility]
== END 2017-11-19 14:43 | disposition left against medical advice (07) ==
LOC: ER 11:38
DX: B34.9 Viral infection, unspecified (principal); R07.9 Chest pain, unspecified; R11.2 Nausea with vomiting, unspecified; R19.7 Diarrhea, unspecified; R51 Headache; R05 Cough; J02.9 Acute pharyngitis, unspecified; I49.5 Sick sinus syndrome; I95.9 Hypotension, unspecified; Z95.0 Presence of cardiac pacemaker
CPT/HCPCS: 99284 ×2; 96374; 96375; 96361; 82550; 85025; 85730; 85610; 82553; 80048; 81003; 81025; 84484; 71046; 93005; 93010; J1170; J2550; J7030

== ENCOUNTER 2017-11-28 20:05 | Emergency (ER) | payer OTHER ==
[2017-11-28] MEDS: 0.9 % SODIUM CHLORIDE 1,000 ML BAG IV ONE (20:25)
[2017-11-28] MEDS ORDERED: KETOROLAC 30 MG/ML VIAL IVP ONE (21:02)
[2017-11-28] MEDS: ONDANSETRON HCL IV 4 MG/2 ML VIAL IV ONE (21:11)
[2017-11-28 21:13] LABS: BASO % 0.3 % (0-6); EOS % 3.1 % (0-6); HEMATOCRIT 36.4 % (35.0-47.0); HEMOGLOBIN 12.1 gm/dl (11.6-16.0); LYMPH % 32.8 % (16-45); MEAN CELL VOLUME 83.3 fl (81-97); MEAN CORPUSCULAR HEMOGLOBIN 27.7 pg (27-33); MEAN CORPUSCULAR HGB CONC 33.2 g/dl (32-36); MONO % 6.8 % (0-9); PLATELET COUNT 330 K/uL (130-400); RED BLOOD COUNT 4.37 M/uL (3.80-5.40); RED CELL DISTRIBUTION WIDTH 14.3 % (11.5-14.5); WHITE BLOOD COUNT W/O DIFF 10.8 K/uL (4.2-12.2)
[2017-11-28 21:14] LABS: URINE APPEARANCE CLEAR; URINE BILIRUBIN NEGATIVE (NEGATIVE); URINE BLOOD NEGATIVE (NEGATIVE); URINE COLOR YELLOW; URINE GLUCOSE (UA) NEGATIVE (NEGATIVE); URINE KETONE NEGATIVE (NEGATIVE); URINE LEUKOCYTE ESTERASE NEGATIVE (NEGATIVE); URINE NITRITE NEGATIVE (NEGATIVE); URINE PROTEIN NEGATIVE (NEGATIVE); URINE UROBILINOGEN 0.2 E.U./dL (0.20 - 1.00)
[2017-11-28 21:16] LABS: HCG,QUALITATIVE URINE NEGATIVE (NEGATIVE)
[2017-11-28 21:22] LABS: BLOOD UREA NITROGEN 8 mg/dL (6-20); CREATININE 0.4 mg/dL (0.5-0.9); EST GLOMERULAR FILTRATION RATE > 60 mL/min
[2017-11-28 21:25] LABS: GLUCOSE,RANDOM 104 mg/dL (74-109)
[2017-11-28] MEDS: PROMETHAZINE HCL 12.5 MG in 0.9 % SODIUM CHLORIDE 100ML 100 ML IVPB ONE (21:49)
[2017-11-28] MEDS: HYDROCODONE/APAP 5/325MG TABLET PO ONE (22:01)
--- NOTE | 2017-11-28 22:02 | Emergency Department Record ---
History of Present Illness - General Chief complaint: Flank Pain Stated complaint: FLANK PAIN,NAUSEA,BLOOD IN URINE Time Seen by Provider: 11/28/17 20:51 Source: Patient Mode of Arrival: Ambulatory Limitations: No limitations - History of Present Illness Initial comments: pt c/o r flank pain and feels like she has a kidney infection and a kidney stone MD Complaint: Other Onset/Timin -: Days(s) Radiation: Non-radiating Severity: Moderate Severity scale (1-10): 6 Quality: Sharp, Stabbing Consistency: Constant Improves with: None Patient : No Associated Symptoms: Abdominal pain, Dysuria, Fever/chills, Hematuria, Nausea/ vomiting - Related Data Sexually active: Yes Allergies Allergy/AdvReac Type Severity Reaction Status Date / Time amoxicillin [Amoxicillin] Allergy VOMITING Verified 11/19/17 11:51 ketorolac [From Toradol] Allergy ITCHING Verified 11/19/17 11:51 Travel Screening - Travel/Exposure Within Last 30 Days Have you traveled within the last 30 days?: No - Travel Symptoms Symptom Screening: Fever (Subjective) Review of Systems Reviewed: No additional complaints except as noted below Constitutional: Reports: As per HPI. Denies: Chills, Fever, Malaise, Night sweats, Weakness, Weight change Eyes: Reports: As per HPI. Denies: Eye discharge, Eye pain, Photophobia, Vision change ENT: Reports: As per HPI. Denies: Congestion, Dental pain, Ear pain, Epistaxis , Hearing loss, Throat pain Respiratory: Reports: As per HPI. Denies: Cough, Dyspnea, Hemoptysis, Stridor, Wheezes Cardiovascular: Reports: As per HPI. Denies: Arrhythmia, Chest pain, Dyspnea on exertion, Edema, Murmurs, Orthopnea, Palpitations, Paroxysmal nocturnal dyspnea, Rheumatic Fever, Syncope Endocrine: Reports: As per HPI. Denies: Fatigue, Heat or cold intolerance, Polydipsia, Polyuria Gastrointestinal: Reports: As per HPI, Abdominal pain, Nausea. Denies: Constipation, Diarrhea, Hematemesis, Hematochezia, Melena, Vomiting Genitourinary: Reports: As per HPI, Dysuria. Denies: Abnormal menses, Discharge , Dyspareunia, Frequency, Hematuria, Incontinence, Retention, Urgency Musculoskeletal: Reports: As per HPI. Denies: Arthralgia, Back pain, Gout, Joint swelling, Myalgia, Neck pain Skin: Reports: As per HPI. Denies: Bruising, Change in color, Change in hair/ nails, Lesions, Pruritus, Rash Neurological: Reports: As per HPI. Denies: Abnormal gait, Confusion, Headache, Numbness, Paresthesias, Seizure, Tingling, Tremors, Vertigo, Weakness Psychiatric: Reports: As per HPI. Denies: Anxiety, Auditory hallucinations, Depression, Homicidal thoughts, Suicidal thoughts, Visual hallucinations Hematological/Lymphatic: Reports: As per HPI. Denies: Anemia, Blood Clots, Easy bleeding, Easy bruising, Swollen glands Past Medical History - SOCIAL HISTORY Smoking Status: Never smoker - RESPIRATORY Hx Respiratory Disorders: No - CARDIOVASCULAR Hx Cardio Disorders: Yes Hx Cardiac Cath: Yes Hx Chest Pain: Yes Hx Hypotension: Yes Hx Irregular Heartbeat: Yes Hx Palpitations: Yes Hx Pacemaker/Defib: Yes Comment:: Sick sinus syndrome - NEURO Hx Neuro Disorders: Yes Hx Headaches: Yes (migraines 2/month) - GI Hx GI Disorders: No - Hx Genitourinary Disorders: Yes Hx Kidney Stones: Yes Hx UTI: Yes - ENDOCRINE Hx Endocrine Disorders: Yes Comment:: hypoglycemic - MUSCULOSKELETAL Hx Musculoskeletal Disorders: No - PSYCH Hx Psych Problems: No - HEMATOLOGY/ONCOLOGY Hx Hematology/Oncology Disorders: No Family Medical History Any Significant Family History?: No Physical Exam - General General Appearance: Alert, Oriented x3, Cooperative, Mild distress - Head Head exam: Normal inspection - Eye Eye exam: Normal appearance, PERRL, EOMI Pupils: Normal accommodation - ENT ENT exam: Normal exam, Mucous membranes moist, Normal external ear exam, Normal orophraynx, TM's normal bilaterally Ear exam: Normal external inspection. negative: External canal tenderness Nasal Exam: Normal inspection. negative: Discharge, Sinus tenderness Mouth exam: Normal external inspection, Tongue normal Teeth exam: Normal inspection. negative: Dental caries Throat exam: Normal inspection. negative: Tonsillar erythema, Tonsillar exudate - Neck Neck exam: Normal inspection, Full ROM. negative: Tenderness - Respiratory Respiratory exam: Normal lung sounds bilaterally. negative: Respiratory distress - Cardiovascular Cardiovascular Exam: Regular rate, Normal rhythm, Normal heart sounds - GI/Abdominal GI/Abdominal exam: Soft, Normal bowel sounds, Tenderness - Rectal Rectal exam: Deferred - exam: Deferred - Extremities Extremities exam: Normal inspection, Full ROM, Normal capillary refill. negative: Tenderness - Back Back exam: Reports: Normal inspection, Full ROM. Denies: Muscle spasm, Rash noted, Tenderness - Neurological Neurological exam: Alert, CN II-XII intact, Normal gait, Oriented X3 - Psychiatric Psychiatric exam: Normal affect, Normal mood - Skin Skin exam: Dry, Intact, Normal color, Warm Course Vital Signs 11/28/17 11/28/17 20:19 21:55 Temperature 97.8 F Pulse Rate [ 76 80 Pulse Ox Probe] Respiratory 20 22 Rate Blood Pressure 131/91 119/55 [Left Arm] Pulse Ox 97 100 Medical Decision Making - Lab Data Result diagrams: 11/28/17 20:25 11/28/17 20:25 Lab Results 11/28/17 11/28/17 11/28/17 Range/Units 20:25 20:25 21:15 WBC 10.8 (4.2-12.2) K/uL RBC 4.37 (3.80-5.40) M/uL Hgb 12.1 (11.6-16.0) gm/dl Hct 36.4 (35.0-47.0) % MCV 83.3 (81-97) fl MCH 27.7 (27-33) pg MCHC 33.2 (32-36) g/dl RDW 14.3 (11.5-14.5) % Plt Count 330 (130-400) K/uL MPV 11.0 H (7.4-10.4) fl Gran % 57.0 (47-80) % Lymphocytes % 32.8 (16-45) % Monocytes % 6.8 (0-9) % Eosinophils % 3.1 (0-6) % Basophils % 0.3 (0-6) % Sodium 138 (136-145) mmol/L Potassium 4.8 H (3.4-4.5) mmol/L Chloride 100 (98-107) mmol/L Carbon Dioxide 26.0 (22-29) mmol/L Anion Gap 12.0 (7-16) BUN 8 (6-20) mg/dL Creatinine 0.4 L (0.5-0.9) mg/dL Estimated GFR > 60 mL/min Random Glucose 104 (74-109) mg/dL Calcium 9.5 (8.6-10.0) mg/dL Urine Color Yellow Urine Appearance Clear Urine pH 6.0 (5.0-8.0) Ur Specific [place] 1.010 (1.002-1.030) Urine Protein Negative (NEGATIVE) Urine Glucose (UA) Negative (NEGATIVE) Urine Ketones Negative (NEGATIVE) Urine Blood Negative (NEGATIVE) Urine Nitrite Negative (NEGATIVE) Urine Bilirubin Negative (NEGATIVE) Urine Urobilinogen 0.2 (0.20 - 1.00) E.U./dL Ur Leukocyte Esterase Negative (NEGATIVE) Urine HCG, Qual Negative (NEGATIVE) Disposition Disposition: Discharge Clinical Impression: Right flank pain Disposition: Home, Self-Care Condition: (1) Good Instructions: Flank Pain (ED) Additional Instructions: follow up with family doctor. return sooner if worse. push fluids Quality - Quality Measures Quality Measures: N/A - Blood Pressure Screening Does Patient Have Any of the Following: No Blood Pressure Classification: Normal BP Reading Systolic Measurement: 119 Diastolic Measurement: 55 Screening for High Blood Pressure: < Normal BP, F/U Not Required > [G8783]
[2017-11-28] MEDS: LORAZEPAM 2 MG/ML VIAL IV ONE (22:19)
[2017-11-28 22:25] LABS: AMPHETAMINE SCREEN URINE NOT DETECTED; BARBITURATE SCREEN URINE NOT DETECTED; BENZODIAZEPINE SCREEN URINE DETECTED; COCAINE SCREEN URINE NOT DETECTED; METHADONE SCREEN URINE NOT DETECTED; METHAMPHETAMINE SCREEN NOT DETECTED; OPIATE SCREEN URINE NOT DETECTED; OXYCODONE SCREEN URINE NOT DETECTED; PHENCYCLIDINE SCREEN URINE NOT DETECTED; PROPOXYPHENE SCREEN URINE NOT DETECTED; THC SCREEN URINE NOT DETECTED; TRICYCLIC ANTIDEPRESSANT SCRN NOT DETECTED
[2017-11-28] MEDS: ONDANSETRON 4 MG ODT TABLET SL ONE (22:41)
--- NOTE | 2017-11-29 14:06 | CT SCAN REPORT ---
EXAM: CT OF THE ABDOMEN AND PELVIS HISTORY: KIDNEY PAIN. TECHNIQUE: CT of the abdomen and pelvis was performed without oral or IV contrast. This limits evaluation of bowel and solid visceral organs. Comparison: 09/01/14 CT. FINDINGS: Limited evaluation of the lung bases is unremarkable. The osseous structures are grossly intact. Limited evaluation of the liver, spleen, adrenal glands, pancreas, and kidneys is unremarkable. Negative for urinary tract calculus or hydronephrosis. No gross evidence for bowel obstruction. Abundant stool in the colon. Trace of free fluid in the pelvis which is likely physiologic. Probable bilateral ovarian follicles. No free air. The appendix is not well seen. No pericecal inflammation. IMPRESSION: 1. NEGATIVE FOR URINARY TRACT CALCULUS OR HYDRONEPHROSIS. ABUNDANT STOOL IN THE COLON. 2. TRACE OF FREE FLUID IN THE PELVIS WHICH IS LIKELY PHYSIOLOGIC. BILATERAL OVARIAN FOLLICLES ARE SUGGESTED. JOB NUMBER: [id number] [facility]
== END 2017-11-28 22:47 | disposition home or self-care (01) ==
LOC: ER 20:05
DX: R10.31 Right lower quadrant pain (principal); R30.0 Dysuria; R11.2 Nausea with vomiting, unspecified; R31.0 Gross hematuria; Z87.442 Personal history of urinary calculi
CPT/HCPCS: 74176; 80048; 80305; 81003; 81025; 85025; 96361; 96365; 96375; 99284; J2405; J2550; J7030

== ENCOUNTER 2018-08-12 18:16 | Emergency (ER) | payer BC ==
[2018-08-12] MEDS ORDERED: DIPHENHYDRAMINE HCL 50 MG/ML VIAL IVP ONE ×2 (18:32→19:48)
[2018-08-12] MEDS ORDERED: METOCLOPRAMIDE HCL 10 MG/2 ML VIAL IVP ONE (18:32)
[2018-08-12] MEDS ORDERED: ACETAMINOPHEN 1,000 MG/100 ML BTL IVPB ONE ×2 (18:32→20:09)
--- NOTE | 2018-08-12 18:38 | Emergency Department Record ---
History of Present Illness - General Chief Complaint: Headache Migraine Stated Complaint: MIGRAINE Time Seen by Provider: 08/12/18 18:27 Source: Patient Mode of Arrival: Ambulatory Limitations: No limitations - History of Present Illness Initial Comments: 28 yo female at 18 weeks gestation presents to ED for evaluation of headache symptoms for the past 5 days. Patient reports a history of migraine headaches with similar symptoms. Patient reports mild visual disturbance as well. Patient was told by her OB to come to the ED for evaluation. Patient denies history of pre-eclampsia, denies abdominal pain or urinary symptoms. Patient also denies neck stiffness symptoms. Patient does report a history of sick sinus syndrome s/p pacemaker placement. MD Complaint: Headache Onset/Timin -: Days(s) Onset Description: Gradual Severity: Severe Severity scale (1-10): 10 Quality: Aching Consistency: Constant Improves With: Nothing Worsens With: None Associated Symptoms: Nausea, Vomiting Treatments Prior to Arrival: Acetaminophen - Related Data Allergies Allergy/AdvReac Type Severity Reaction Status Date / Time ketorolac [From Toradol] Allergy ITCHING Unverified 07/22/18 15:03 amoxicillin [Amoxicillin] AdvReac VOMITING Unverified 08/12/18 18:31 Travel Screening - Travel/Exposure Within Last 30 Days Have you traveled within the last 30 days?: No Review of Systems Constitutional: Denies: Chills, Fever, Malaise, Night sweats Eyes: Reports: Vision change. Denies: Eye discharge, Eye pain ENT: Denies: Congestion, Ear pain Respiratory: Reports: Cough. Denies: Dyspnea Cardiovascular: Denies: Chest pain, Dyspnea on exertion Endocrine: Reports: Fatigue. Denies: Heat or cold intolerance Gastrointestinal: Reports: Nausea. Denies: Vomiting Genitourinary: Denies: Incontinence, Retention Musculoskeletal: Denies: Arthralgia, Back pain, Gout, Joint swelling Skin: Denies: Bruising, Change in color Neurological: Reports: Headache. Denies: Abnormal gait, Confusion, Numbness, Tingling, Tremors Psychiatric: Denies: Anxiety Hematological/Lymphatic: Denies: Anemia, Blood Clots Past Medical History - SOCIAL HISTORY Smoking Status: Never smoker Alcohol Use: None Drug Use: None - RESPIRATORY Hx Respiratory Disorders: No - CARDIOVASCULAR Hx Cardio Disorders: Yes Hx Cardiac Cath: Yes Hx Chest Pain: Yes Hx Hypotension: Yes Hx Irregular Heartbeat: Yes Hx Palpitations: Yes Hx Pacemaker/Defib: Yes Comment:: Sick sinus syndrome - NEURO Hx Neuro Disorders: Yes Hx Headaches: Yes (migraines 2/month) - GI Hx GI Disorders: No - Hx Genitourinary Disorders: Yes Hx Kidney Stones: Yes Hx UTI: Yes - ENDOCRINE Hx Endocrine Disorders: Yes Comment:: hypoglycemic - MUSCULOSKELETAL Hx Musculoskeletal Disorders: No - PSYCH Hx Psych Problems: No - HEMATOLOGY/ONCOLOGY Hx Hematology/Oncology Disorders: No Family Medical History Any Significant Family History?: No Physical Exam - General General Appearance: Alert, Oriented x3, Cooperative, Mild distress, Other ( appears uncomfortable due to her headache symptoms.) Limitations: No limitations - Head Head exam: Atraumatic, Normocephalic, Normal inspection Head exam detail: negative: Abrasion, Contusion, Anderson's sign, General tenderness, Hematoma, Laceration - Eye Eye exam: Normal appearance. negative: Conjunctival injection, Periorbital swelling, Periorbital tenderness, Scleral icterus - ENT Ear exam: negative: Auricular hematoma, Auricular trauma Nasal Exam: negative: Active bleeding, Discharge, Dried blood, Foreign body Mouth exam: negative: Drooling, Laceration, Tongue elevation - Neck Neck exam: Normal inspection. negative: Meningismus, Tenderness - Respiratory Respiratory exam: Normal lung sounds bilaterally. negative: Respiratory distress, Rhonchi, Stridor, Wheezes - Cardiovascular Cardiovascular Exam: Normal rhythm, Normal heart sounds, Tachycardia - GI/Abdominal GI/Abdominal exam: Soft, Other (Gravid uterus present). negative: Rebound, Rigid, Tenderness - Rectal Rectal exam: Deferred - exam: Deferred - Extremities Extremities exam: Normal inspection. negative: Calf tenderness, Pedal edema, Tenderness - Back Back exam: Denies: CVA tenderness (R), CVA tenderness (L) - Neurological Neurological exam: Alert, Normal gait, Oriented X3 - Psychiatric Psychiatric exam: Normal affect, Normal mood - Skin Skin exam: Normal color. negative: Abrasion Type of lesion: negative: abrasion Course Vital Signs 08/12/18 18:26 Temperature 98.2 F Pulse Rate 125 H Respiratory 18 Rate Blood Pressure 123/79 Pulse Ox 99 - Reevaluation(s) Reevaluation #1: 08/12/18 18:38 Patient was seen and examined. BP 123/79 currently. Will obtain hepatic enzymes and urinalysis to exclude proteinuria. Will obtain chest radiography as the patient reports recent cough symptoms, recently diagnosed with PNA 3 weeks ago. Will also administer migraine cocktail for her migraine headache symptoms and reassess. Reevaluation #2: 08/12/18 19:15 Laboratory studies were reviewed and are grossly unremarkable for an acute process. Reevaluation #3: 08/12/18 20:11 UA reviewed and appears negative. CXR: No acute process Patient was updated on all results, phenergan/Benadryl ordered for additional analgesia as the patient reports that her headache symptoms have not significantly improved. Reevaluation #4: 08/12/18 20:56 Patient reassessed, she is resting comfortably at this time and appears stable for discharge at this time. Medical Decision Making - Lab Data Result diagrams: 08/12/18 18:40 08/12/18 18:40 Disposition Disposition: Discharge Clinical Impression: Headache Qualifiers: Headache type: unspecified Headache chronicity pattern: acute headache Intractability: not intractable Qualified Code(s): R51 - Headache Disposition: Home, Self-Care Condition: (2) Stable Instructions: Acute Headache (ED) Additional Instructions: Return to ED if your symptoms worsen or if you have any concerns. Follow-up with your OB in 1-3 days as directed. Forms: Patient Portal Access Time of Disposition: 20:56 Quality - Quality Measures Quality Measures: N/A - Blood Pressure Screening Does Patient Have Any of the Following: No Blood Pressure Classification: Pre-Hypertensive BP Reading Systolic Measurement: 123 Diastolic Measurement: 79 Screening for High Blood Pressure: < Pre-Hypertensive BP, F/U Documented > [ G8950] Pre-Hypertensive Follow-up Interventions: Referral to alternative/primary care provider.
[2018-08-12] MEDS ORDERED: 0.9 % SODIUM CHLORIDE 1000ML 1,000 ML IV SCH (18:45)
[2018-08-12 18:51] LABS: BASO % 0.2 % (0-6); EOS % 4.3 % (0-6); GRAN % 66.7 % (47-80); HEMATOCRIT 39.7 % (35.0-47.0); HEMOGLOBIN 12.9 gm/dl (11.6-16.0); LYMPH % 22.5 % (16-45); MEAN CELL VOLUME 83.4 fl (81-97); MEAN CORPUSCULAR HEMOGLOBIN 27.1 pg (27-33); MEAN CORPUSCULAR HGB CONC 32.5 g/dl (32-36); MONO % 6.3 % (0-9); PLATELET COUNT 276 K/uL (130-400); RED BLOOD COUNT 4.76 M/uL (3.80-5.40); RED CELL DISTRIBUTION WIDTH 14.1 % (11.5-14.5); WHITE BLOOD COUNT W/O DIFF 11.1 K/uL (4.2-12.2)
[2018-08-12 19:06] LABS: BLOOD UREA NITROGEN 8 mg/dL (6-20); CREATININE 0.3 mg/dL (0.5-0.9); EST GLOMERULAR FILTRATION RATE > 60 mL/min
[2018-08-12 19:07] LABS: TOTAL PROTEIN 7.3 g/dL (6.6-8.7)
[2018-08-12 19:09] LABS: GLUCOSE,RANDOM 92 mg/dL (74-109)
[2018-08-12 19:11] LABS: ALT/SGPT 11 U/L (<33)
[2018-08-12 19:12] LABS: ALB/GLOB RATIO 1.3 (1.1-1.8); ALBUMIN 4.1 g/dL (4.0-5.0); ALKALINE PHOSPHATASE 50 U/L (35-104); AST/SGOT 17 U/L (10.0-35.0)
[2018-08-12] MEDS ORDERED: ONDANSETRON HCL IV 4 MG/2 ML VIAL IVP ONE (19:14)
[2018-08-12] MEDS ORDERED: PROMETHAZINE HCL 12.5 MG in 0.9 % SODIUM CHLORIDE 100ML 100 ML IVPB ONE (19:48)
[2018-08-12 19:54] LABS: URINE APPEARANCE CLEAR; URINE BILIRUBIN NEGATIVE (NEGATIVE); URINE BLOOD NEGATIVE (NEGATIVE); URINE COLOR YELLOW; URINE GLUCOSE (UA) NEGATIVE (NEGATIVE); URINE KETONE NEGATIVE (NEGATIVE); URINE LEUKOCYTE ESTERASE NEGATIVE (NEGATIVE); URINE NITRITE NEGATIVE (NEGATIVE); URINE PROTEIN NEGATIVE (NEGATIVE); URINE UROBILINOGEN 0.2 E.U./dL (0.20 - 1.00)
--- NOTE | 2018-08-15 11:04 | RADIOLOGY REPORT ---
EXAM: CHEST, TWO VIEWS HISTORY: PATIENT HAS COUGH AND FEVER. TECHNIQUE: Two views of the chest are provided along with the comparison study dated 11/19/17. FINDINGS: The cardiomediastinal silhouette is within normal limits for size and contour. The krzysztof appear unremarkable. The left anterior chest wall pacemaker is unchanged with respect to the prior examination. There is no radiographic evidence of a focal infiltrate, pleural effusion, or pneumothorax. IMPRESSION: STABLE RADIOGRAPHIC APPEARANCE OF THE CHEST WITH RESPECT TO THE PRIOR EXAMINATION. JOB NUMBER: [id number] [facility]
== END 2018-08-12 21:06 | disposition home or self-care (01) ==
LOC: ER 18:16
DX: R51 Headache (principal); R11.2 Nausea with vomiting, unspecified; H53.8 Other visual disturbances; I10 Essential (primary) hypertension; I49.5 Sick sinus syndrome; Z95.0 Presence of cardiac pacemaker; Z33.1 Pregnant state, incidental
CPT/HCPCS: 99284 ×2; 96376; 96374; 96375; 85025; 80053; 81003; 71046; J2405; J1200; J2550; J2765; J7030

== ENCOUNTER 2018-10-10 11:16 | Emergency (ER) | payer BC, OTHER ==
[2018-10-10] MEDS ORDERED: ACETAMINOPHEN 325 MG TAB PO ONE (11:47)
[2018-10-10 12:08] LABS: HEMATOCRIT 35.2 % (35.0-47.0); HEMOGLOBIN 11.7 gm/dl (11.6-16.0); MEAN CELL VOLUME 85.4 fl (81-97); MEAN CORPUSCULAR HEMOGLOBIN 28.4 pg (27-33); MEAN CORPUSCULAR HGB CONC 33.2 g/dl (32-36); MEAN PLATELET VOLUME 9.7 fl (7.4-10.4); PLATELET COUNT 254 K/uL (130-400); RED BLOOD COUNT 4.12 M/uL (3.80-5.40); RED CELL DISTRIBUTION WIDTH 13.8 % (11.5-14.5); WHITE BLOOD COUNT W/O DIFF 11.7 K/uL (4.2-12.2)
--- NOTE | 2018-10-10 12:13 | Emergency Department Record ---
History of Present Illness - General Chief Complaint: Dizziness Stated Complaint: EXPOSED TO GAS LEAK, Time Seen by Provider: 10/10/18 11:23 Source: Patient Mode of Arrival: Ambulatory Limitations: No limitations - History of Present Illness Initial Comments: The patient is here due to possibly being exposed to gas at work. 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 The building was evacuated because of the smell and the patient and rest of staff stood outside for an hour. Eventually everyone was sent home but since the patient is 26 weeks she was told to "get checked out". The patient did have complaints of a mild ST, HURTADO and dizziness. There was no cough, SOB, JOSE EDUARDO, or vomiting. Presently she is feeling better. The patient states the baby is moving fine and she denies any AP or cramping or bleeding. MD Complaint: Dizziness Onset/Timin -: Hour(s) Timing: Gradual onset Description: Lightheadedness, Nausea History of Same: No History of Trauma: No Severity: Moderate Improves With: Nothing Worsens With: Nothing - Corrine Coma Scale Eye Response: (4) Open spontaneously Motor Response: (6) Obeys commands Verbal Response: (5) Oriented Wrights Total: 15 - Related Data Allergies Allergy/AdvReac Type Severity Reaction Status Date / Time ketorolac [From Toradol] Allergy ITCHING Unverified 07/22/18 15:03 amoxicillin [Amoxicillin] AdvReac VOMITING Unverified 08/12/18 18:31 Travel Screening - Travel/Exposure Within Last 30 Days Have you traveled within the last 30 days?: No - Travel/Exposure Within Last Year Have you traveled outside the [place] in the last year?: No - Additonal Travel Details Have you been exposed to anyone with a communicable illness?: No - Travel Symptoms Symptom Screening: Headache Review of Systems Constitutional: Denies: Chills, Fever Eyes: Denies: Eye discharge ENT: Denies: Congestion Respiratory: Denies: Cough, Dyspnea Past Medical History - SOCIAL HISTORY Smoking Status: Never smoker Alcohol Use: None Drug Use: None - RESPIRATORY Hx Respiratory Disorders: No - CARDIOVASCULAR Hx Cardio Disorders: Yes Hx Cardiac Cath: Yes Hx Chest Pain: Yes Hx Hypotension: Yes Hx Irregular Heartbeat: Yes Hx Palpitations: Yes Hx Pacemaker/Defib: Yes Comment:: Sick sinus syndrome - NEURO Hx Neuro Disorders: Yes Hx Headaches: Yes (migraines 2/month) - GI Hx GI Disorders: No - Hx Genitourinary Disorders: Yes Hx Kidney Stones: Yes Hx UTI: Yes - ENDOCRINE Hx Endocrine Disorders: Yes Comment:: hypoglycemic - MUSCULOSKELETAL Hx Musculoskeletal Disorders: No - PSYCH Hx Psych Problems: No - HEMATOLOGY/ONCOLOGY Hx Hematology/Oncology Disorders: No Family Medical History Any Significant Family History?: No Physical Exam - General General Appearance: Alert, Oriented x3, Cooperative, No acute distress - Head Head exam: Atraumatic, Normocephalic, Normal inspection - Eye Eye exam: Normal appearance, PERRL, EOMI - ENT Throat exam: Normal inspection. negative: Tonsillar erythema, Tonsillar exudate - Neck Neck exam: Normal inspection, Full ROM. negative: Tenderness - Respiratory Respiratory exam: Normal lung sounds bilaterally. negative: Respiratory distress - Cardiovascular Cardiovascular Exam: Regular rate, Normal rhythm, Normal heart sounds - GI/Abdominal GI/Abdominal exam: Soft, Normal bowel sounds. negative: Tenderness - Extremities Extremities exam: Normal inspection, Full ROM, Normal capillary refill. negative: Tenderness - Neurological Neurological exam: Alert, Normal gait. negative: Abnormal gait, Motor sensory deficit Course Vital Signs 10/10/18 11:21 Temperature 97.8 F Pulse Rate 88 Respiratory 18 Rate Blood Pressure 118/73 Pulse Ox 98 - Reevaluation(s) Reevaluation #1: The patient is doing very well at this time. She states her HURTADO and dizziness are gone. She has been on oxygen by face mask for an hour and feels ready for home. 10/10/18 13:24 Medical Decision Making - Data Complexity MDM Data: Labs Ordered and/or Reviewed - Lab Data Result diagrams: 10/10/18 11:55 10/10/18 11:55 Lab Results 10/10/18 Range/Units 11:46 Carboxyhemoglobin 2.3 H (0-1.5) % Disposition Disposition: Discharge Clinical Impression: Chemical exposure Disposition: Home, Self-Care Condition: (2) Stable Instructions: Dizziness (ED) Additional Instructions: Please take Tylenol if needed and please see your OB doctor for any pain, bleeding or cramping. Forms: Patient Portal Access Time of Disposition: 13:26 Quality - Quality Measures Quality Measures: N/A - Blood Pressure Screening View Details: Yes Does Patient Have Any of the Following: No Blood Pressure Classification: Normal BP Reading Systolic Measurement: 118 Diastolic Measurement: 73 Screening for High Blood Pressure: < Normal BP, F/U Not Required > [G8712]
[2018-10-10 12:22] LABS: BLOOD UREA NITROGEN 7 mg/dL (6-20); CREATININE 0.4 mg/dL (0.5-0.9); EST GLOMERULAR FILTRATION RATE > 60 mL/min
[2018-10-10 12:23] LABS: TOTAL PROTEIN 6.6 g/dL (6.6-8.7)
[2018-10-10 12:25] LABS: GLUCOSE,RANDOM 92 mg/dL (74-109)
[2018-10-10 12:27] LABS: ALT/SGPT 14 U/L (<33)
[2018-10-10 12:28] LABS: ALB/GLOB RATIO 1.2 (1.1-1.8); ALBUMIN 3.6 g/dL (4.0-5.0); ALKALINE PHOSPHATASE 56 U/L (35-104); AST/SGOT 16 U/L (10.0-35.0)
[2018-10-10] MEDS ORDERED: POTASSIUM CHLORIDE 20 MEQ TABLET PO ONE (12:53)
== END 2018-10-10 13:32 | disposition home or self-care (01) ==
LOC: ER 11:16
DX: O9A.212 Injury, poisoning and certain other consequences of external causes complicating pregnancy, second trimester (principal); T58.91XA Toxic effect of carbon monoxide from unspecified source, accidental (unintentional), initial encounter; R51 Headache; R42 Dizziness and giddiness; J02.9 Acute pharyngitis, unspecified; R07.89 Other chest pain; Y92.59 Other trade areas as the place of occurrence of the external cause; Y99.0 Civilian activity done for income or pay; Z3A.26 26 weeks gestation of pregnancy
CPT/HCPCS: 80053; 82375; 85027; 99283; 99284

== ENCOUNTER 2019-02-24 15:04 | Emergency (ER) | payer BC ==
[2019-02-24] MEDS ORDERED: 0.9 % SODIUM CHLORIDE 1,000 ML BAG IV ONE (15:49)
[2019-02-24] MEDS ORDERED: ONDANSETRON HCL IV 4 MG/2 ML VIAL IV ONE (15:49)
[2019-02-24] MEDS ORDERED: HYDROMORPHONE HCL 2 MG/ML VIAL IVP ONE ×2 (15:51→17:29)
[2019-02-24 16:09] LABS: URINE APPEARANCE CLEAR; URINE BILIRUBIN NEGATIVE (NEGATIVE); URINE BLOOD NEGATIVE (NEGATIVE); URINE COLOR YELLOW; URINE GLUCOSE (UA) NEGATIVE (NEGATIVE); URINE KETONE NEGATIVE (NEGATIVE); URINE LEUKOCYTE ESTERASE NEGATIVE (NEGATIVE); URINE NITRITE NEGATIVE (NEGATIVE); URINE PROTEIN NEGATIVE (NEGATIVE); URINE UROBILINOGEN 0.2 E.U./dL (0.20 - 1.00)
[2019-02-24 16:11] LABS: HCG,QUALITATIVE URINE NEGATIVE (NEGATIVE)
[2019-02-24 16:42] LABS: HEMATOCRIT 41.9 % (35.0-47.0); HEMOGLOBIN 13.5 gm/dl (11.6-16.0); RED BLOOD COUNT 5.03 M/uL (3.80-5.40); WHITE BLOOD COUNT W/O DIFF 8.3 K/uL (4.2-12.2)
[2019-02-24 16:43] LABS: BASO % 0.5 % (0-6); GRAN % 49.6 % (47-80); LYMPH % 37.8 % (16-45); MEAN CELL VOLUME 83.3 fl (81-97); MEAN CORPUSCULAR HEMOGLOBIN 26.8 pg (27-33); MEAN CORPUSCULAR HGB CONC 32.2 g/dl (32-36); MONO % 7.1 % (0-9); PLATELET COUNT 295 K/uL (130-400); RED CELL DISTRIBUTION WIDTH 12.9 % (11.5-14.5)
[2019-02-24 16:55] LABS: BLOOD UREA NITROGEN 9 mg/dL (6-20); CREATININE 0.5 mg/dL (0.5-0.9); EST GLOMERULAR FILTRATION RATE > 60 mL/min
[2019-02-24 16:58] LABS: GLUCOSE,RANDOM 95 mg/dL (74-109)
[2019-02-24] MEDS ORDERED: ONDANSETRON HCL IV 4 MG/2 ML VIAL IVP ONE (17:30)
--- NOTE | 2019-02-24 18:36 | Emergency Department Record ---
History of Present Illness - General Chief complaint: Flank Pain Stated complaint: FLANK PAIN,NAUSEA, Time Seen by Provider: 02/24/19 15:45 Source: Patient Mode of Arrival: Ambulatory Limitations: No limitations - History of Present Illness Initial comments: pt is c/o r flank pain and n/v, uti symptoms. she is sure that she has a kidney infection and thinks she might have a kidney stone. she states she has had both before. she also states she has had a fever MD Complaint: Dysuria -: Hour(s) Radiation: R flank Severity scale (1-10): 10 Quality: Sharp, Stabbing Consistency: Constant Improves with: None Worsens with: None Patient : No Associated Symptoms: Fever/chills, Nausea/vomiting - Related Data Previous Rx's Medication Instructions Recorded Hydrocodone/Acetaminophen [[place] 1 each PO BID #5 tablet 02/24/19 5-325 Tablet] Promethazine HCl [Phenergan] 12.5 mg PO BID #5 tablet 02/24/19 Allergies Allergy/AdvReac Type Severity Reaction Status Date / Time ketorolac [From Toradol] Allergy ITCHING Verified 02/24/19 15:31 amoxicillin [Amoxicillin] AdvReac VOMITING Verified 02/24/19 15:31 Travel Screening - Travel/Exposure Within Last 30 Days Have you traveled within the last 30 days?: No - Travel Symptoms Symptom Screening: None Review of Systems Reviewed: No additional complaints except as noted below Constitutional: Reports: As per HPI. Denies: Chills, Fever, Malaise, Night sweats, Weakness, Weight change Eyes: Reports: As per HPI. Denies: Eye discharge, Eye pain, Photophobia, Vision change ENT: Reports: As per HPI. Denies: Congestion, Dental pain, Ear pain, Epistaxis , Hearing loss, Throat pain Respiratory: Reports: As per HPI. Denies: Cough, Dyspnea, Hemoptysis, Stridor, Wheezes Cardiovascular: Reports: As per HPI. Denies: Arrhythmia, Chest pain, Dyspnea on exertion, Edema, Murmurs, Orthopnea, Palpitations, Paroxysmal nocturnal dyspnea, Rheumatic Fever, Syncope Endocrine: Reports: As per HPI. Denies: Fatigue, Heat or cold intolerance, Polydipsia, Polyuria Gastrointestinal: Reports: As per HPI. Denies: Abdominal pain, Constipation, Diarrhea, Hematemesis, Hematochezia, Melena, Nausea, Vomiting Genitourinary: Reports: As per HPI. Denies: Abnormal menses, Discharge, Dyspareunia, Dysuria, Frequency, Hematuria, Incontinence, Retention, Urgency Musculoskeletal: Reports: As per HPI. Denies: Arthralgia, Back pain, Gout, Joint swelling, Myalgia, Neck pain Skin: Reports: As per HPI. Denies: Bruising, Change in color, Change in hair/ nails, Lesions, Pruritus, Rash Neurological: Reports: As per HPI. Denies: Abnormal gait, Confusion, Headache, Numbness, Paresthesias, Seizure, Tingling, Tremors, Vertigo, Weakness Psychiatric: Reports: As per HPI. Denies: Anxiety, Auditory hallucinations, Depression, Homicidal thoughts, Suicidal thoughts, Visual hallucinations Hematological/Lymphatic: Reports: As per HPI. Denies: Anemia, Blood Clots, Easy bleeding, Easy bruising, Swollen glands Past Medical History - SOCIAL HISTORY Smoking Status: Never smoker Alcohol Use: None Drug Use: None - RESPIRATORY Hx Respiratory Disorders: No - CARDIOVASCULAR Hx Cardio Disorders: Yes Hx Cardiac Cath: Yes Hx Chest Pain: Yes Hx Hypotension: Yes Hx Irregular Heartbeat: Yes Hx Palpitations: Yes Hx Pacemaker/Defib: Yes Comment:: Sick sinus syndrome - NEURO Hx Neuro Disorders: Yes Hx Headaches: Yes (migraines 2/month) - GI Hx GI Disorders: No - Hx Genitourinary Disorders: Yes Hx Kidney Stones: Yes Hx UTI: Yes - ENDOCRINE Hx Endocrine Disorders: Yes Comment:: hypoglycemic - MUSCULOSKELETAL Hx Musculoskeletal Disorders: No - PSYCH Hx Psych Problems: No - HEMATOLOGY/ONCOLOGY Hx Hematology/Oncology Disorders: No Family Medical History Any Significant Family History?: Yes Hx Cancer: Brother/Sister Hx Kidney Disease: Brother/Sister Physical Exam - General General Appearance: Alert, Oriented x3, Cooperative, No acute distress - Head Head exam: Normal inspection - Eye Eye exam: Normal appearance, PERRL, EOMI Pupils: Normal accommodation - ENT ENT exam: Normal exam, Mucous membranes moist, Normal external ear exam, Normal orophraynx Ear exam: Normal external inspection. negative: External canal tenderness Nasal Exam: Normal inspection. negative: Discharge, Sinus tenderness Mouth exam: Normal external inspection, Tongue normal Teeth exam: Normal inspection. negative: Dental caries Throat exam: Normal inspection. negative: Tonsillar erythema, Tonsillar exudate - Neck Neck exam: Normal inspection, Full ROM. negative: Tenderness - Respiratory Respiratory exam: Normal lung sounds bilaterally. negative: Respiratory distress - Cardiovascular Cardiovascular Exam: Regular rate, Normal rhythm, Normal heart sounds - GI/Abdominal GI/Abdominal exam: Soft, Normal bowel sounds. negative: Tenderness - Rectal Rectal exam: Deferred - exam: Deferred - Extremities Extremities exam: Normal inspection, Full ROM, Normal capillary refill. negative: Tenderness - Back Back exam: Reports: Normal inspection, Full ROM. Denies: Muscle spasm, Rash noted, Tenderness - Neurological Neurological exam: Alert, CN II-XII intact, Normal gait, Oriented X3 - Psychiatric Psychiatric exam: Normal affect, Normal mood - Skin Skin exam: Dry, Intact, Normal color, Warm Course Vital Signs 02/24/19 02/24/19 15:26 17:57 Temperature 98.1 F Pulse Rate 86 Pulse Rate [ 83 Pulse Ox Probe] Respiratory 20 Rate Blood Pressure 104/70 Blood Pressure 104/75 [Right Arm] Pulse Ox 98 98 - Reevaluation(s) Reevaluation #1: 02/24/19 18:[address] and urine was neg as it was in 11/28/17. pt states she went to [facility] after that and was admitted for pylonephritis. Medical Decision Making - Lab Data Result diagrams: 02/24/19 16:25 02/24/19 16:25 Lab Results 02/24/19 02/24/19 02/24/19 Range/Units 16:04 16:25 16:25 WBC 8.3 (4.2-12.2) K/uL RBC 5.03 (3.80-5.40) M/uL Hgb 13.5 (11.6-16.0) gm/dl Hct 41.9 (35.0-47.0) % MCV 83.3 (81-97) fl MCH 26.8 L (27-33) pg MCHC 32.2 (32-36) g/dl RDW 12.9 (11.5-14.5) % Plt Count 295 (130-400) K/uL MPV 10.0 (7.4-10.4) fl Gran % 49.6 (47-80) % Lymphocytes % 37.8 (16-45) % Monocytes % 7.1 (0-9) % Eosinophils % 5.0 (0-6) % Basophils % 0.5 (0-6) % Sodium 142 (136-145) mmol/L Potassium 3.7 (3.4-4.5) mmol/L Chloride 107 (98-107) mmol/L Carbon Dioxide 23.0 (22-29) mmol/L Anion Gap 12.0 (7-16) BUN 9 (6-20) mg/dL Creatinine 0.5 (0.5-0.9) mg/dL Estimated GFR > 60 mL/min Random Glucose 95 (74-109) mg/dL Calcium 9.2 (8.6-10.0) mg/dL Urine Color Yellow Urine Appearance Clear Urine pH 6.0 (5.0-8.0) Ur Specific [place] <= 1.005 (1.002-1.030) Urine Protein Negative (NEGATIVE) Urine Glucose (UA) Negative (NEGATIVE) Urine Ketones Negative (NEGATIVE) Urine Blood Negative (NEGATIVE) Urine Nitrite Negative (NEGATIVE) Urine Bilirubin Negative (NEGATIVE) Urine Urobilinogen 0.2 (0.20 - 1.00) E.U./dL Ur Leukocyte Esterase Negative (NEGATIVE) Urine HCG, Qual Negative (NEGATIVE) Disposition Disposition: Discharge Clinical Impression: Flank pain, Lung nodule < 6cm on CT Disposition: Home, Self-Care Condition: (1) Good Instructions: Flank Pain (ED), Pulmonary Nodules (ED) Additional Instructions: follow up with family doctor. return sooner if worse. push fluids. follow up with urologist and GI doctor. have follow up ct of lungs in 6 months . Prescriptions: Hydrocodone/Acetaminophen [[place] 5-325 Tablet] 1 each PO BID #5 tablet Promethazine HCl [Phenergan] 12.5 mg PO BID #5 tablet Forms: Patient Portal Access Quality - Quality Measures Quality Measures: N/A - Blood Pressure Screening Does Patient Have Any of the Following: No Blood Pressure Classification: Normal BP Reading Systolic Measurement: 104 Diastolic Measurement: 70 Screening for High Blood Pressure: < Normal BP, F/U Not Required > [G8783]
== END 2019-02-24 19:14 | disposition home or self-care (01) ==
LOC: ER 15:04
DX: R10.31 Right lower quadrant pain (principal); R91.1 Solitary pulmonary nodule; R11.2 Nausea with vomiting, unspecified; R30.0 Dysuria
CPT/HCPCS: 99284 ×2; 96376; 96374; 96375; 96361; 85025; 80048; 81003; 81025; 74176; J2405; J1170; J7030

== ENCOUNTER 2019-12-17 15:39 | Emergency (ER) | payer BC, OTHER ==
--- NOTE | 2019-12-17 16:26 | Emergency Department Record ---
History of Present Illness - General Chief Complaint: Dizziness Stated Complaint: dizziness,nausea Time Seen by Provider: 12/17/19 16:15 Source: Patient Mode of Arrival: Wheelchair - History of Present Illness Initial Comments: patient is here with dizziness and this dizziness started today and seen at [facility] with vomiting and sinus drainage. Patient denies and has an IUD in place and has a small headache and it was worse 3 days ago and she had neck pain 3 days and that is getting better. Flu test was negative and told symptoms consistent with flu and placed on tamiflu 7 mg bid. Headache and neck pain getting better but balance is off. nystagmus is horizontal.PMH sick sinus syndrome and has a pacemaker. history of migraine headaches and back pain and takes percocet 7.5 every [address] Del Valle. Patient stated vomited times three with the vertigo. PMH patent foramen ovale - [place] Coma Scale Eye Response: (4) Open spontaneously Motor Response: (6) Obeys commands Verbal Response: (5) Oriented [place] Total: 15 - Symptoms of Stroke Onset of Symptoms Date: 12/17/19 Onset of Symptoms Time: 07:00 Symptom Onset Unknown: Yes Symptoms of stroke: Dizziness - Related Data Home Medications Medication Instructions Recorded Confirmed Last Taken Diazepam [Valium] 5 mg PO ASDIR PRN 12/17/19 12/17/19 Unknown Oxycodone HCl/Acetaminophen 1 each PO Q6HR PRN 12/17/19 12/17/19 12/17/19 [Percocet 7.5mg/325mg] Previous Rx's Medication Instructions Recorded Promethazine HCl [Phenergan] 12.5 mg PO BID #5 tablet 02/24/19 Meclizine HCl [Antivert] 25 mg PO Q8H #30 tablet 12/17/19 Meclizine HCl [Antivert] 25 mg PO Q8H #30 tablet 12/17/19 Naproxen [Naprosyn] 500 mg PO Q12H #20 tab. 12/17/19 Allergies Allergy/AdvReac Type Severity Reaction Status Date / Time ketorolac [From Toradol] Allergy ITCHING Verified 12/17/19 15:53 amoxicillin [Amoxicillin] AdvReac VOMITING Verified 12/17/19 15:53 Travel/Exposure Screening - Travel/Exposure Within Last 30 Days Have you traveled within the last 30 days?: No - Travel/Exposure Within Last Year Have you traveled outside the [place] in the last year?: No - Additonal Travel/Exposure Details Have you been exposed to anyone with a communicable illness?: No - Travel Symptoms Symptom Screening: Fever (GT 100.4) Review of Systems Reviewed: No additional complaints except as noted below Constitutional: Reports: As per HPI. Denies: Chills, Fever, Malaise, Night sweats, Weakness, Weight change Eyes: Reports: As per HPI. Denies: Eye discharge, Eye pain, Photophobia, Vision change ENT: Reports: As per HPI. Denies: Congestion, Dental pain, Ear pain, Epistaxis, Hearing loss, Throat pain Respiratory: Reports: As per HPI. Denies: Cough, Dyspnea, Hemoptysis, Stridor, Wheezes Cardiovascular: Reports: As per HPI. Denies: Arrhythmia, Chest pain, Dyspnea on exertion, Edema, Murmurs, Orthopnea, Palpitations, Paroxysmal nocturnal dyspnea, Rheumatic Fever, Syncope Endocrine: Reports: As per HPI. Denies: Fatigue, Heat or cold intolerance, Polydipsia, Polyuria Gastrointestinal: Reports: As per HPI. Denies: Abdominal pain, Constipation, Diarrhea, Hematemesis, Hematochezia, Melena, Nausea, Vomiting Genitourinary: Reports: As per HPI. Denies: Abnormal menses, Discharge, Dyspareunia, Dysuria, Frequency, Hematuria, Incontinence, Retention, Urgency Musculoskeletal: Reports: As per HPI. Denies: Arthralgia, Back pain, Gout, Joint swelling, Myalgia, Neck pain Skin: Reports: As per HPI. Denies: Bruising, Change in color, Change in hair/nails, Lesions, Pruritus, Rash Neurological: Reports: As per HPI, Headache, Vertigo. Denies: Abnormal gait, Confusion, Numbness, Paresthesias, Seizure, Tingling, Tremors, Weakness Psychiatric: Reports: As per HPI. Denies: Anxiety, Auditory hallucinations, Depression, Homicidal thoughts, Suicidal thoughts, Visual hallucinations Hematological/Lymphatic: Reports: As per HPI. Denies: Anemia, Blood Clots, Easy bleeding, Easy bruising, Swollen glands Past Medical History - SOCIAL HISTORY Smoking Status: Never smoker Alcohol Use: None Drug Use: None - RESPIRATORY Hx Respiratory Disorders: No - CARDIOVASCULAR Hx Cardio Disorders: Yes Hx Cardiac Cath: Yes Hx Chest Pain: Yes Hx Hypotension: Yes Hx Irregular Heartbeat: Yes Hx Palpitations: Yes Hx Pacemaker/Defib: Yes Comment:: Sick sinus syndrome - NEURO Hx Neuro Disorders: Yes Hx Headaches: Yes (migraines 2/month) - GI Hx GI Disorders: No - Hx Genitourinary Disorders: Yes Hx Kidney Stones: Yes Hx UTI: Yes - ENDOCRINE Hx Endocrine Disorders: Yes Comment:: hypoglycemic - MUSCULOSKELETAL Hx Musculoskeletal Disorders: No - PSYCH Hx Psych Problems: No - HEMATOLOGY/ONCOLOGY Hx Hematology/Oncology Disorders: No Family Medical History Any Significant Family History?: No Hx Cancer: Brother/Sister Hx Kidney Disease: Brother/Sister Physical Exam - General General Appearance: Alert, Oriented x3, Cooperative, Mild distress - Head Head exam: Normal inspection - Eye Eye exam: Normal appearance, PERRL, Other (horizontal nystagmus) Pupils: Normal accommodation - ENT ENT exam: Normal exam, Mucous membranes moist, Normal external ear exam, Normal orophraynx, TM's normal bilaterally Ear exam: Normal external inspection. negative: External canal tenderness Nasal Exam: Normal inspection. negative: Discharge, Sinus tenderness Mouth exam: Normal external inspection, Tongue normal Teeth exam: Normal inspection. negative: Dental caries Throat exam: Normal inspection. negative: Tonsillar erythema, Tonsillar exudate - Neck Neck exam: Normal inspection, Full ROM. negative: Tenderness - Respiratory Respiratory exam: Normal lung sounds bilaterally. negative: Respiratory distress - Cardiovascular Cardiovascular Exam: Regular rate, Normal rhythm, Normal heart sounds - GI/Abdominal GI/Abdominal exam: Soft, Normal bowel sounds. negative: Tenderness - Rectal Rectal exam: Deferred - exam: Deferred - Extremities Extremities exam: Normal inspection, Full ROM, Normal capillary refill. negative: Tenderness - Back Back exam: Reports: Normal inspection, Full ROM. Denies: Muscle spasm, Rash noted, Tenderness - Neurological Neurological exam: Alert, Normal gait, Oriented X3, Reflexes normal, Other (balance is off ) - Psychiatric Psychiatric exam: Normal affect, Normal mood - Skin Skin exam: Dry, Intact, Normal color, Warm Course Vital Signs 12/17/19 15:47 Pulse Rate 87 Respiratory 18 Rate Blood Pressure 108/82 Pulse Ox 99 - Reevaluation(s) Reevaluation #1: CT of head negative and concerned for a cerebellar bleed, the severe headache was one week ago, discussed LP with the patient and she agrees with the LP. 12/17/19 17:55 12/17/19 17:59 Reevaluation #2: spinal tap done in the sitting position opening pressure 33. fluid is clear and patient tolerated the procedure well fluid collected and sent to the lab needle removed with the stillet in place 12/17/19 18:43 Reevaluation #3: patient given antivert 25 mg for vertigo also given phenergan 25 mg IV 12/17/19 18:46 Reevaluation #4: patient having some discomfort around the lumbar puncture site headache is feeling better 12/17/19 19:22 Medical Decision Making - Data Complexity MDM Data: Labs Ordered and/or Reviewed, EKG Ordered and/or Reviewed (atrial paced NSR) - Lab Data Result diagrams: 12/17/19 16:40 12/17/19 16:40 Disposition Clinical Impression: BPV (benign positional vertigo) Qualifiers: Laterality: unspecified laterality Qualified Code(s): H81.10 - Benign paroxysmal vertigo, unspecified ear Disposition: Home, Self-Care Condition: (1) Good Instructions: Benign Paroxysmal Positional Vertigo (ED) Additional Instructions: antivert 25 mg three times a day naprosyn twice a day Prescriptions: Meclizine HCl [Antivert] 25 mg PO Q8H #30 tablet Meclizine HCl [Antivert] 25 mg PO Q8H #30 tablet Naproxen [Naprosyn] 500 mg PO Q12H #20 tab.dr Forms: Patient Portal Access Time of Disposition: 19:34 Quality - Blood Pressure Screening Does Patient Have Any of the Following: No Blood Pressure Classification: Pre-Hypertensive BP Reading Systolic Measurement: 108 Diastolic Measurement: 82 Screening for High Blood Pressure: < Pre-Hypertensive BP, F/U Documented > [G8950]
[2019-12-17] MEDS ORDERED: ONDANSETRON HCL IV 4 MG/2 ML VIAL IVP ONE (16:33)
[2019-12-17 16:48] LABS: ABSOLUTE NEUTROPHIL COUNT 4.72; BASO % 0.3 % (0-6); GRAN % 54.6 % (47-80); HEMATOCRIT 43.9 % (35.0-47.0); HEMOGLOBIN 14.4 gm/dl (11.6-16.0); LYMPH % 34.3 % (16-45); MEAN CELL VOLUME 80.6 fl (81-97); MEAN CORPUSCULAR HEMOGLOBIN 26.4 pg (27-33); MEAN CORPUSCULAR HGB CONC 32.8 g/dl (32-36); MEAN PLATELET VOLUME 10.1 fl (7.4-10.4); MONO % 5.8 % (0-9); PLATELET COUNT 340 K/uL (130-400); RED BLOOD COUNT 5.45 M/uL (3.80-5.40); RED CELL DISTRIBUTION WIDTH 12.7 % (11.5-14.5); WHITE BLOOD COUNT W/O DIFF 8.6 K/uL (4.2-12.2)
[2019-12-17] MEDS: 0.9 % SODIUM CHLORIDE 1000ML 1,000 ML IV ONE ×2 (16:57→18:47)
[2019-12-17 17:00] LABS: PARTIAL THROMBOPLASTIN TIME 26.2 SECONDS (24.5-39.1); PROTHROMBIN TIME (PATIENT) 10.7 SECONDS (9.5-12.1)
[2019-12-17 17:01] LABS: BLOOD UREA NITROGEN 9 mg/dL (6-20); CREATININE 0.6 mg/dL (0.5-0.9); EST GLOMERULAR FILTRATION RATE > 60 mL/min
[2019-12-17 17:02] LABS: TOTAL PROTEIN 7.7 g/dL (6.6-8.7)
[2019-12-17 17:04] LABS: GLUCOSE,RANDOM 137 mg/dL (74-109)
[2019-12-17 17:06] LABS: URINE APPEARANCE CLEAR; URINE BILIRUBIN NEGATIVE (NEGATIVE); URINE BLOOD NEGATIVE (NEGATIVE); URINE COLOR YELLOW; URINE GLUCOSE (UA) NEGATIVE (NEGATIVE); URINE KETONE NEGATIVE (NEGATIVE); URINE LEUKOCYTE ESTERASE TRACE (NEGATIVE); URINE NITRITE NEGATIVE (NEGATIVE); URINE PROTEIN NEGATIVE (NEGATIVE); URINE UROBILINOGEN 0.2 E.U./dL (0.20 - 1.00)
[2019-12-17 17:06] LABS: ALT/SGPT 10 U/L (<33)
[2019-12-17 17:07] LABS: ALBUMIN 4.8 g/dL (4.0-5.0); ALKALINE PHOSPHATASE 86 U/L (35-104); AST/SGOT 14 U/L (10.0-35.0); BILIRUBIN,DIRECT < 0.2 mg/dL (0-0.3)
[2019-12-17 17:14] LABS: URINE BACTERIA NONE SEEN; URINE RBC NONE SEEN (NONE SEEN)
[2019-12-17 17:18] LABS: HCG,QUALITATIVE URINE NEGATIVE (NEGATIVE)
--- NOTE | 2019-12-17 17:50 | CT SCAN REPORT ---
EXAMINATION: HEAD WO CONTRAST EXAM DATE: 12/17/2019 5:41 PM TECHNIQUE: Noncontrast axial images were obtained to the brain. INDICATION: vertigo gait problems, headache COMPARISON: 10/26/2011 ENCOUNTER: Not applicable HAND DOMINANCE: Unknown FINDINGS: The brain parenchyma is unremarkable for age. No loss of arriaga-white matter differentiation or sulcal effacement to indicate acute infarction. No evidence of intracranial mass. The ventricles, sulci, and subarachnoid spaces are unremarkable for age. The basal cisterns are paten t and there is no midline shift or herniation. No evidence of intracranial hemorrhage. The paranasal sinuses, mastoid air cells, and orbits are unremarkable. The calvarium is intact. IMPRESSION: 1. No CT evidence of intracranial hemorrhage or acute intracranial abnormality. Dictated by: ZACH GOMEZ MD on 12/17/2019 5:48 PM. .
[2019-12-17] MEDS ORDERED: MIDAZOLAM HCL 2MG/2ML VIAL IV ONE (17:57)
[2019-12-17] MEDS ORDERED: HYDROMORPHONE HCL 1 MG/ML SYRINGE IVP ONE (17:58)
[2019-12-17] MEDS ORDERED: PROMETHAZINE HCL 25 MG in 0.9 % SODIUM CHLORIDE 100ML 100 ML IVPB ONE (18:35)
[2019-12-17] MEDS ORDERED: MECLIZINE 25 MG TABLET PO ONE (18:39)
[2019-12-17] MEDS ORDERED: 0.9 % SODIUM CHLORIDE 1000ML 1,000 ML IV SCH (18:45)
[2019-12-17 19:11] LABS: TOTAL PROTEIN,CSF 24.5 mg/dL (15.0-45.0)
[2019-12-17 19:57] LABS: CSF APPEARANCE CLEAR; CSF COLOR COLORLESS; CSF RBC 0 /mm3; CSF WBC 1 /uL
[2019-12-17 20:19] LABS: SPECIMEN SOURCE CSF
== END 2019-12-17 20:23 | disposition home or self-care (01) ==
LOC: ER 15:39
DX: H81.10 Benign paroxysmal vertigo, unspecified ear (principal); R11.2 Nausea with vomiting, unspecified; R51 Headache; I49.5 Sick sinus syndrome; R50.81 Fever presenting with conditions classified elsewhere; Z95.0 Presence of cardiac pacemaker
CPT/HCPCS: 62270; 70450; 80048; 80076; 81001; 81025; 82945; 84157; 85025; 85610; 85730; 87205; 89051; 93005; 93010; 96361; 96365; 96375; 99152; 99285; J1170; J2405; J2550; J7030